=== PATIENT | female | born 1945 | race Caucasian/White ===

== ENCOUNTER 2017-02-18 22:15 | Emergency (ER) | payer MEDICARE ==
[~2017-02-18] VITALS: Ht 149.9 cm; Wt 80.7 kg
[~2017-02-18 22:15] MED LIST: BIOTIN1 MG PO; BUPROPION HCL100 M1 PO; BUSPIRONE HCL10 MG PO; BUSPIRONE HCL15 MG PO; CALCIUM 500 +1 EAC3 PO; CELEXA20 MG PO; CLONAZEPAM1 MG PO; DULOXETINE HCL30 MG PO; FIORICET 50-321 EACH PO; GABAPENTIN100 MG PO; GABAPENTIN300 MG PO; HYDROCODON-ACE1 EA10 PO; IMITREX50 MG PO; L-METHYLFOLATE15 M1 PO; LEVOXYL50 MCG PO; LISINOPRIL10 MG PO; LOSARTAN POTASS50 MG PO; MAGNESIUM250 M1 PO; NASONEX17 GM NAS; NEXIUM40 MG PO; NORCO 5-325 TA1 EACH PO; OCUFLOX5 ML OPTH; PERCOCET 5-3251 EACH PO; PROVENTIL HFA6.7 GM INH; SOMA350 MG PO; VITAMIN A8000 UNIT PO; VITAMIN B-125000 MCG SL; VITAMIN D35000 UNI1 PO; [UNRECOGNIZED DRUG - OTHER] INH
[2017-02-18] MEDS ORDERED: NORCO 5-325 TA1 EACH PO (23:21)
== END 2017-02-19 00:03 | disposition home or self-care (01) ==
LOC: ED 22:15
DX: S83.91XA Sprain of unspecified site of right knee, initial encounter (principal); S20.02XA Contusion of left breast, initial encounter; J45.909 Unspecified asthma, uncomplicated; E03.9 Hypothyroidism, unspecified; F32.9 Major depressive disorder, single episode, unspecified; K21.9 Gastro-esophageal reflux disease without esophagitis; Z87.891 Personal history of nicotine dependence; Z90.710 Acquired absence of both cervix and uterus; Z89.112 Acquired absence of left hand; Z88.8 Allergy status to other drugs, medicaments and biological substances; Z88.0 Allergy status to penicillin; Z88.1 Allergy status to other antibiotic agents; Z79.899 Other long term (current) drug therapy; W18.30XA Fall on same level, unspecified, initial encounter
CPT/HCPCS: 73560; 99283

== ENCOUNTER 2018-03-02 02:40 | Emergency (ER) | payer MEDICARE ==
[~2018-03-02] VITALS: Ht 152.4 cm; Wt 80.7 kg
--- OUTSIDE RECORDS SUMMARY | ~2018-03-02 | XMS | Clinical Summary ---
Demographics + + + | Address | [address] | | | [place] [address] | + + + | Home Phone | | + + + | Preferred Language | Unknown | + + + | Marital Status | | + + + | Quaker Affiliation | 1073 | + + + | Race | Unknown | + + + | Ethnic Group | Unknown | + + + Author + + + | Author | [facility] | | | and [place] | + + + | Organization | [facility] | | | and [place] | + + + | Address | Unknown | + + + | Phone | Unavailable | + + + Support + + +---------+ + | Name | Relationship | Address | Phone | + + +---------+ + | ERNIE RIVERA | ECON | Unknown | | + + +---------+ + Care Team Providers + +------+ + | Care Construction Executive Name | Role | Phone | + +------+ + | Greg De Leon DO | PP | Unavailable | + +------+ + Allergies + + + + + + | Active Allergy | Reactions | Severity | Noted | Comments | | | | | Date | | + + + + + + | Penicillins | Hives, Rash | Low | 01/17/20 | | | | | | 15 | | + + + + + + Current Medications + + +--------+---------+------+------+-------+ | Prescription | Sig. | Disp. | Refills | Star | End | Statu | | | | | | t | Date | s | | | | | | Date | | | + + +--------+---------+------+------+-------+ | carisoprodol | Take 350 mg by mouth | | | | | Activ | | (SOMA) 350 mg tablet | 3 times daily as | | | | | e | | | needed for Muscle | | | | | | | | spasms. | | | | | | + + +--------+---------+------+------+-------+ | clonazePAM | Take 1 mg by mouth | | | | | Activ | | (KLONOPIN) 1 mg | Twice daily as | | | | | e | | tablet | needed for Anxiety. | | | | | | + + +--------+---------+------+------+-------+ | gabapentin | Take 300 mg by mouth | | | | | Activ | | (NEURONTIN) 100 mg | 3 times daily. | | | | | e | | capsule | | | | | | | + + +--------+---------+------+------+-------+ | | Take by mouth 2 | | | | | Activ | | butalbital-acetamino | times daily. | | | | | e | | phen-caffeine | | | | | | | | (FIORICET) per | | | | | | | | tablet | | | | | | | + + +--------+---------+------+------+-------+ | lisinopril | Take 10 mg by mouth | | | | | Activ | | (PRINIVIL, ZESTRIL) | Daily. | | | | | e | | 10 mg tablet | | | | | | | + + +--------+---------+------+------+-------+ | levothyroxine | Take 50 mcg by mouth | | | | | Activ | | (SYNTHROID, | every morning | | | | | e | | LEVOTHROID) 50 mcg | (before breakfast). | | | | | | | tablet | | | | | | | + + +--------+---------+------+------+-------+ | Cyanocobalamin | Take 5,000 mg by | | | | | Activ | | (B-12 PO) | mouth Daily. | | | | | e | + + +--------+---------+------+------+-------+ | MAGNESIUM | Take by mouth | | | | | Activ | | ASPARTATE PO | Daily. | | | | | e | + + +--------+---------+------+------+-------+ | SELENIUM PO | Take by mouth | | | | | Activ | | | Daily. | | | | | e | + + +--------+---------+------+------+-------+ | Esomeprazole | Take 40 mg by mouth | | | | | Activ | | Magnesium (NEXIUM | Daily. | | | | | e | | PO) | | | | | | | + + +--------+---------+------+------+-------+ | busPIRone (BUSPAR) | Take 15 mg by mouth | | | | | Activ | | 10 MG tablet | 4 times daily. | | | | | e | + + +--------+---------+------+------+-------+ | Mometasone Furoate | 1 spray by Nasal | | | | | Activ | | (NASONEX NA) | route as needed | | | | | e | | | (uses about 2 times | | | | | | | | a month). | | | | | | + + +--------+---------+------+------+-------+ | Cholecalciferol | Take 5,000 Units by | | | | | Activ | | (VITAMIN D-3) 2000 | mouth Daily. | | | | | e | | units CAPS | | | | | | | + + +--------+---------+------+------+-------+ | albuterol 90 | Inhale 2 puffs into | 17 g | 12 | 10/0 | | Activ | | mcg/puff inhaler | the lungs every 4 | | | 1/20 | | e | | | hours as needed for | | | 15 | | | | | Wheezing or | | | | | | | | Shortness of Breath. | | | | | | + + +--------+---------+------+------+-------+ | losartan (COZAAR) | Take 50 mg by mouth | | | | | Activ | | 50 mg tablet | Daily. | | | | | e | + + +--------+---------+------+------+-------+ | buPROPion | Take 100 mg by mouth | | | | | Activ | | (WELLBUTRIN) 100 mg | 2 times daily. | | | | | e | | tablet | | | | | | | + + +--------+---------+------+------+-------+ | DULoxetine | Take 30 mg by mouth | | | | | Activ | | (CYMBALTA) [address] | Daily. | | | | | e | | capsule | | | | | | | + + +--------+---------+------+------+-------+ | vitamin A (PX | Take 8,000 Units by | | | | | Activ | | VITAMIN A) 8000 | mouth Daily. | | | | | e | | units capsule | | | | | | | + + +--------+---------+------+------+-------+ | fluticasone | Inhale 1 puff into | | | | | Activ | | (FLOVENT HFA) 220 | the lungs 2 times | | | | | e | | mcg/puff inhaler | daily. | | | | | | + + +--------+---------+------+------+-------+ | l-methylfolate 15 | Take 15 mg by mouth | | | | | Activ | | mg tablet | Daily. | | | | | e | + + +--------+---------+------+------+-------+ | | Take 1 tablet by | | | | | Activ | | aspirin-acetaminophe | mouth every 6 hours | | | | | e | | n-caffeine (EXCEDRIN | as needed for Pain. | | | | | | | MIGRAINE) | | | | | | | | 250-250-65 MG per | | | | | | | | tablet | | | | | | | + + +--------+---------+------+------+-------+ | Biotin 1000 MCG | Take 1,000 mcg by | | | | | Activ | | TABS | mouth Daily. | | | | | e | + + +--------+---------+------+------+-------+ | calcium-vitamin D | Take 1 tablet by | | | | | Activ | | (OSCAL 500/200 D-3) | mouth Daily. | | | | | e | | 500 mg-200 units per | | | | | | | | tablet | | | | | | | + + +--------+---------+------+------+-------+ Active Problems + + + | Problem | Noted Date | + + + | Asthma | | + + + | Seasonal allergies | | + + + | Hypertension | | + + + | Hypothyroidism | | + + + | Elevated fasting blood sugar | | + + + | Depression | | + + + + + | Overview: worse in the winter | + + + +---+ | Obesity | | + +---+ | GERD (gastroesophageal reflux disease) | | + +---+ | Osteoporosis | | + +---+ | Lumbar spinal stenosis | | + +---+ Immunizations + + + + | Name | Dates Previously Given | Next Due | + + + + | INFLUENZA, | 05/01/2016, 04/18/2014 | | | UNSPECIFIED | | | | FORMULATION | | | + + + + | PNEUMOCOCCAL | 04/06/2015 | | | CONJUGATE 13-VALENT | | | | (PCV13) | | | + + + + | TDAP, (ADOL/ADULT) | 05/01/2016 | | + + + + Family History + + +------+ + | Medical History | Relation | Name | Comments | + + +------+ + | Diabetes | Brother | | | + + +------+ + | Cancer | Brother | | leukemia | + + +------+ + | Asthma | Daughter | | | + + +------+ + | Heart attack | Father | | | + + +------+ + | Hepatitis C | Father | | | + + +------+ + | Prostate cancer | Father | | | + + +------+ + | Diabetes | Mother | | | + + +------+ + | Hepatitis C | Mother | | | + + +------+ + | Kidney disease | Mother | | | + + +------+ + | Asthma | Sister | | | + + +------+ + | Diabetes | Sister | | | + + +------+ + | Lung cancer | Sister | | | + + +------+ + | Alcohol abuse | Son | | | + + +------+ + | Tobacco Use | Son | | | + + +------+ + + +------+ + + | Relation | Name | Status | Comments | + +------+ + + | Brother | | Alive | | + +------+ + + | Brother | | | | + +------+ + + | Daughter | | Alive | | + +------+ + + | Father | | | prostate cancer | + +------+ + + | Mother | | | renal failure | + +------+ + + | Sister | | | | + +------+ + + | Sister | | Alive | | + +------+ + + | Son | | Alive | | + +------+ + + Social History + + + +--------+ + | Tobacco Use | Types | Packs/Day | Years | Date | | | | | Used | | + + + +--------+ + | Former Smoker | Cigarettes | 0.1 | 6 | Quit: 02/02/1970 | + + + +--------+ + + +---+---+---+ | Smokeless Tobacco: | | | | | Never Used | | | | + +---+---+---+ + + +---------+ + | Alcohol Use | Drinks/We | oz/Week | Comments | | | ek | | | + + +---------+ + | No | 0 | 0.0 | | | | Standard | | | | | drinks or | | | | | | | | | | equivalen | | | | | t | | | + + +---------+ + + + + | Sex Assigned at | Date Recorded | | | | + + + | Not on file | | + + + Last Filed Vital Signs + + + + | Vital Sign | Reading | Time Taken | + + + + | Blood Pressure | 136/70 | 11/27/20161448 PDT | + + + + | Pulse | 82 | 11/27/20161448 PDT | + + + + | Temperature | 36.6 C (97.9 F) | 02/02/2015 0902 PDT | + + + + | Respiratory Rate | 16 | 11/27/20161448 PDT | + + + + | Oxygen Saturation | 96% | 04/06/20151519 PDT | + + + + | Inhaled Oxygen | - | - | | Concentration | | | + + + + | Weight | 82.6 kg (182 lb) | 11/27/20161448 PDT | + + + + | Height | 149.9 cm (4' 11") | 11/27/20161448 PDT | + + + + | Body Mass Index | 36.76 | 11/27/20161448 PDT | + + + + Plan of Treatment + + + + + | Health Maintenance | Due Date | Last Done | Comments | + + + + + | BREAST CANCER | | | | | SCREENING (MAMM Q2 | 5 | | | | YEARS 50-74) | | | | + + + + + | Vaccine: Zoster (1 | | | | | of 2) | 5 | | | + + + + + | Vaccine: | | 04/06/2015 | | | Pneumococcal 65+ | 6 | | | | Low/Medium Risk (2 | | | | | of 2 - PPSV23) | | | | + + + + + | Vaccine: Influenza | | 05/01/2016, 04/18/2014 | | | (#1) | 8 | | | + + + + + | Vaccine: | | 05/01/2016 | | | Dtap/Tdap/Td (2 - | 6 | | | | Td) | | | | + + + + + | Hepatitis C | Completed | 08/21/2016 | | | Screening | | | | + + + + + Results Not on filefrom Last 3 Months Insurance + +--------+ +--------+-------+---------+ | Payer | Benefi | Subscriber | Type | Phone | Address | | | t Plan | ID | | | | | | / | | | | | | | Group | | | | | + +--------+ +--------+-------+---------+ | [employer] | MODA | [id number] | Medica | | | | | HEALTH | | re | | | | | MDCR | | | | | + +--------+ +--------+-------+---------+ + +--------+ +--------+ + + | Guarantor Name | Accoun | Relation to | Date | Phone | Billing Address | | | t Type | Patient | of | | | | | | | | | | + +--------+ +--------+ + + | YANIRA RIVERA | Person | Self | [birth year] | Home: | [address] | | | al/Fam | | 1945 | [phone] | [place] | | | [place] | | | [phone] | [phone] | + +--------+ +--------+ + +
--- OUTSIDE RECORDS SUMMARY | ~2018-03-02 | XMS | Clinical Summary ---
Demographics + + + | Address | [address] | | | [place] [address] | + + + | Home Phone | | + + + | Preferred Language | Unknown | + + + | Marital Status | | + + + | Jew Affiliation | Unknown | + + + | Race | White | + + + | Ethnic Group | Not or | + + + Author + + + | Author | [facility] | + + + | Organization | [facility] | + + + | Address | Unknown | + + + | Phone | Unavailable | + + + Care Team Providers + +------+ + | Care Grain Merchandising Manager Name | Role | Phone | + +------+ + PP | Unavailable | + +------+ + Source Comments [facility] and [facility] Allergies Not on File Current Medications Not on file Active Problems Not on file Social History + +-------+ +--------+------+ | Tobacco Use | Types | Packs/Day | Years | Date | | | | | Used | | + +-------+ +--------+------+ | Never Assessed | | | | | + +-------+ +--------+------+ + + + | Sex Assigned at | Date Recorded | | | | + + + | Not on file | | + + + Plan of Treatment + + + + + | Health Maintenance | Due Date | Last Done | Comments | + + + + + | INFLUENZA VACCINE | | | | | (FLU SHOT) | 8 | | | + + + + + Results Not on filefrom Last 3 Months Insurance + +--------+ +------+ + + | Payer | Benefi | Subscriber | Type | Phone | Address | | | t Plan | ID | | | | | | / | | | | | | | Group | | | | | + +--------+ +------+ + + | [employer] | MODA | xxxxxxxxx | PPO | [phone] | [address] | | | MEDICA | | | [address] | [place] [address] | | | RE PPO | | | | | + +--------+ +------+ + + + +--------+ +--------+ + + | Guarantor Name | Accoun | Relation to | Date | Phone | Billing Address | | | t Type | Patient | of | | | | | | | | | | + +--------+ +--------+ + + | YANIRA RIVERA | Person | Self | [birth year] | Home: | [address] | | | [place] | | 1945 | [phone] | [address] [place] | | | [place] | | | [phone] | [phone] | + +--------+ +--------+ + +"
--- OUTSIDE RECORDS SUMMARY | ~2018-03-02 | XMS | Clinical Summary ---
Demographics + + + | Address | [address] | | | [place] [address] | + + + | Home Phone | | + + + | Preferred Language | Unknown | + + + | Marital Status | | + + + | Protestant Affiliation | 1073 | + + + | Race | Unknown | + + + | Ethnic Group | Unknown | + + + Author + + + | Author | [facility] | | | and [place] | + + + | Organization | [facility] | | | and [...] Team Providers + +------+ + | Care Slitter Helper Name | Role | Phone | + [...] | [employer] | MODA | [id number] | Medica | | | | | [...] | Self | [birth year] | Home: | [address] | | | al/Fam | | 1945 | [phone] | [place] | | | [place] | | | [phone] | [phone] | + +--------+ +--------+ + +
--- OUTSIDE RECORDS SUMMARY | ~2018-03-02 | XMS | Clinical Summary ---
Demographics + + + | Address | [address] | | | [place] [address] | + + + | Home Phone | | + + + | Preferred Language | Unknown | + + + | Marital Status | | + + + | Restoration Affiliation | Unknown | + + + | Race | White | + + + | Ethnic Group | Not or | + + + Author + + + | Author | [facility] | + + + | Organization | [facility] | + + + | Address | Unknown | + + + | Phone | Unavailable | + + + Care Team Providers + +------+ + | Care Emu Farm Worker Name | Role | Phone | + +------+ + PP | Unavailable | + +------+ + Source Comments [facility] and [facility] & [facility] Allergies Not on File Current Medications Not [...] | MEDICA | | | [address] | [place] [address] | | | RE PPO | | [...] | Self | [birth year] | Home: | [address] | | | jesus/[place]as | | 1945 | [phone] | [address] [place] | | | [place] | | | [phone] | [phone] | + +--------+ +--------+ + +"
--- OUTSIDE RECORDS SUMMARY | ~2018-03-02 | XMS | Clinical Summary ---
Demographics + + + | Address | [address] | | | [place] [address] | + + + | Home Phone | | + + + | Preferred Language | Unknown | + + + | Marital Status | Unknown | + + + | Hoahaoism Affiliation | Unknown | + + + | Race | Unknown | + + + | Ethnic Group | Unknown | + + + Author + + + | Author | [facility] | + + + | Organization | [facility] | + + + | Address | Unknown | + + + | Phone | Unavailable | + + + Support + + + + + | Name | Relationship | Address | Phone | + + + + + | Dom Rivera | ECON | [address] | | | Sr | | [place], [place] | | | | | [address] | | + + + + + | Detailed,Message | ECON | [address] | | | | | [place], [place] | | | | | [address] | | + + + + + Care Team Providers + +------+ + | Care Concrete Plant Laborer Name | Role | Phone | + +------+ + | Barney De Leon DO | PP | | + +------+ + Allergies + + + + + + | Active Allergy | Reactions | Severity | Noted | Comments | | | | | Date | | + + + + + + | Cephalexin | Headache | Low | 04/11/20 | | | | | | 17 | | + + + + + + | Penicillins | Hives, Rash | High | 06/21/20 | | | | | | 16 | | + + + + + + Current Medications + + +-------+---------+------+------+-------+ | Prescription | Sig. | Disp. | Refills | Star | End | Statu | | | | | | t | Date | s | | | | | | Date | | | + + +-------+---------+------+------+-------+ | Biotin 1 MG CAPS | Take 1,000 mcg by | | | | | Activ | | | mouth. | | | | | e | + + +-------+---------+------+------+-------+ | buPROPion | Take 100 mg by mouth | | | | | Activ | | (WELLBUTRIN) 100 MG | 2 (two) times | | | | | e | | tablet | daily. | | | | | | + + +-------+---------+------+------+-------+ | busPIRone (BUSPAR) | Take 15 mg by mouth | | | | | Activ | | 15 MG tablet | 4 (four) times | | | | | e | | | daily. | | | | | | + + +-------+---------+------+------+-------+ | clonazePAM | Take 1 mg by mouth | | | | | Activ | | (KLONOPIN) 1 MG | nightly as needed | | | | | e | | tablet | for Anxiety. | | | | | | + + +-------+---------+------+------+-------+ | DULoxetine | Take 30 mg by mouth | | | | | Activ | | (CYMBALTA) 30 MG | daily. | | | | | e | | capsule | | | | | | | + + +-------+---------+------+------+-------+ | | Take 1 tablet by | | | | | Activ | | aspirin-acetaminophe | mouth every 6 (six) | | | | | e | | n-caffeine (EXCEDRIN | hours as needed for | | | | | | | MIGRAINE) | Pain. | | | | | | | 250-250-65 MG per | | | | | | | | tablet | | | | | | | + + +-------+---------+------+------+-------+ | gabapentin | Take 300 mg by mouth | | | | | Activ | | (NEURONTIN) 300 MG | 3 (three) times | | | | | e | | capsule | daily. 1 Cap AM, 1 | | | | | | | | Cap Noon, 3 Pap PM | | | | | | + + +-------+---------+------+------+-------+ | levothyroxine | Take 50 mcg by mouth | | | | | Activ | | (SYNTHROID) 50 MCG | every morning | | | | | e | | tablet | before breakfast. | | | | | | + + +-------+---------+------+------+-------+ | L-methylfolate | Take 15 mg by mouth | | | | | Activ | | (DEPLIN) 15 MG | daily with | | | | | e | | tablet | breakfast. | | | | | | + + +-------+---------+------+------+-------+ | LOSARTAN POTASSIUM | Take 50 mg by mouth | | | | | Activ | | PO | daily. | | | | | e | + + +-------+---------+------+------+-------+ | Magnesium 250 MG | Take 250 mg by mouth | | | | | Activ | | TABS tablet | daily. | | | | | e | + + +-------+---------+------+------+-------+ | esomeprazole | Take 40 mg by mouth | | | | | Activ | | (NEXIUM) 40 MG | every morning before | | | | | e | | capsule | breakfast. | | | | | | + + +-------+---------+------+------+-------+ | vitamin A (PX | Take 8,000 Units by | | | | | Activ | | VITAMIN A) 8000 UNIT | mouth daily. | | | | | e | | capsule | | | | | | | + + +-------+---------+------+------+-------+ | carisoprodol | Take 350 mg by mouth | | | | | Activ | | (SOMA) 350 MG tablet | 3 (three) times | | | | | e | | | daily as needed for | | | | | | | | Muscle spasms. | | | | | | + + +-------+---------+------+------+-------+ | albuterol | Inhale 2 puffs into | | | | | Activ | | (VENTOLIN HFA) 108 | the lungs every 4 | | | | | e | | (90 BASE) MCG/ACT | (four) hours as | | | | | | | inhaler | needed for Wheezing. | | | | | | + + +-------+---------+------+------+-------+ | Cyanocobalamin | Take 5,000 mcg by | | | | | Activ | | (VITAMIN B-12) 5000 | mouth daily. | | | | | e | | MCG LOZG | | | | | | | + + +-------+---------+------+------+-------+ | Cholecalciferol | Take 5,000 Units by | | | | | Activ | | 5000 UNITS capsule | mouth daily. | | | | | e | + + +-------+---------+------+------+-------+ | | Take 1 tablet by | | | | | Activ | | butalbital-acetamino | mouth 2 (two) times | | | | | e | | phen-caffeine | daily. | | | | | | | (ESGIC) 50-325-40 MG | | | | | | | | per tablet | | | | | | | + + +-------+---------+------+------+-------+ | buPROPion | 300 mg daily. | | | 03/0 | | Activ | | (WELLBUTRIN SR) 100 | | | | 9/20 | | e | | MG 12 hr tablet | | | | 17 | | | + + +-------+---------+------+------+-------+ | Chromium 1000 MCG | Take 1,000 mcg by | | | | | Activ | | TABS | mouth daily. | | | | | e | + + +-------+---------+------+------+-------+ | Calcium | Take by mouth | | | | | Activ | | Carb-Cholecalciferol | daily. | | | | | e | | (CALCIUM 500+D3 PO) | | | | | | | + + +-------+---------+------+------+-------+ Active Problems + + + | Problem | Noted Date | + + + | CKD (chronic kidney disease), stage III | 07/22/2016 | + + + | Non morbid obesity due to excess calories | 07/22/2016 | + + + Family History + + +------+ + | Medical History | Relation | Name | Comments | + + +------+ + | Cancer | Father | | Prostate | + + +------+ + | Renal Disease | Mother | | | + + +------+ + + +------+ + + | Relation | Name | Status | Comments | + +------+ + + | Father | | | | | | | (Age | | | | | 61) | | + +------+ + + | Mother | | | | | | | (Age | | | | | 71) | | + +------+ + + Social History + +-------+ +--------+------+ | Tobacco Use | Types | Packs/Day | Years | Date | | | | | Used | | + +-------+ +--------+------+ | Never Smoker | | | | | + +-------+ +--------+------+ + + | Tobacco Cessation: Counseling Given: No | + + + + +---------+ + | Alcohol Use [...] + + + | Blood Pressure | 121/75 | 11/12/2017 1:01 PM PDT | + + + + | Pulse | 90 | 11/12/2017 1:01 PM PDT | + + + + | Temperature | 36.3 C (97.3 F) | 11/12/2017 1:01 PM PDT | + + + + | Respiratory Rate | - | - | + + + + | Oxygen Saturation | 96% | 11/12/2017 1:01 PM PDT | + + + + | Inhaled Oxygen | - | - | | Concentration | | | + + + + | Weight | 84.1 kg (185 lb 8 | 11/12/2017 1:01 PM PDT | | | oz) | | + + + + | Height | 149.9 cm (4' 11") | 11/12/2017 1:01 PM PDT | + + + + | Body Mass Index | 37.47 | 11/12/2017 1:01 PM PDT | + + + + Plan of Treatment +--------+---------+ + + + | Date | Type | Specialty | Care Team | Description | +--------+---------+ + + + | 05/22/ | Office | | [facility]on[facility], | | | 2017 | Visit | | [facility] | | | | | | [facility] | | | | | | [place] [address] | | | | | | [phone] | | | | | | | | +--------+---------+ + + + + + + + + | Health Maintenance | Due Date | Last Done | Comments | + + + + + | Breast Cancer | | | | | Screening | 5 | | | | (Mammogram) | | | | + + + + + | Colon Cancer | | | | | Screening | 5 | | | | (Colonoscopy) | | | | + + + + + | Vaccine: Zoster (1 | | | | | of 2) | 5 | | | + + + + + | DEXA SCAN SCREENING | | | | | | 0 | | | + + + + + | Vaccine: | | 04/06/2015 | | | Pneumococcal 65+ | 6 | | | | Low/Medium Risk (2 | | | | | of 2 - PPSV23) | | | | + + + + + | Vaccine: Influenza | | | | | (#1) | 8 | [...] | | | + +--------+ +--------+-------+---------+ | [place] - MODA | [place] - | [id number] | Medica | | | | | MODA | | re | | | | | | | | | | | | | | | | | | | | | | | | | | | | | | | | | | | | | | | | MA - | | | | | | | MODA | | | | | + +--------+ [...] | Self | [birth year] | Home: | [address] | | | [place] | | 1945 | [phone] | [address] [place] | | | [place] | | | [phone] | [phone] | + +--------+ +--------+ + +
--- OUTSIDE RECORDS SUMMARY | ~2018-03-02 | XMS | Clinical Summary ---
Demographics + + + | Address | [address] | | | [place] [address] | + + + | Home Phone | | + + + | Preferred Language | Unknown | + + + | Marital Status | Unknown | + + + | Caodaism Affiliation | Unknown | + + + | Race | Unknown | + + + | Ethnic Group | Unknown | + + + Author + + + | Author | [facility] | + + + | Organization | [facility] | + + + | Address | Unknown | + + + | Phone | Unavailable | + + + Support + + + + + | Name | Relationship | Address | Phone | + + + + + | Dom Rivera | ECON | [address] | | | Sr | | [place], [place] | | | | | [address] | | + + + + + | Detailed,Message | ECON | [address] | | | | | [place], [place] | | | | | [address] | | + + + + + Care Team Providers + +------+ + | Care Reading Tutor Name | Role | Phone | + [...] VINCENT | | | | | | [place] [address] | | | | | | [phone] | | | | | | | [...] MA - MODA | [place] - | [id number] | Medica | | | | | [...] | Self | [birth year] Home: | [address] | | | [address]as | | [phone] | [phone] [address] | | | [place] | | | [phone] | + +--------+ +--------+ + +
[2018-03-02] MEDS ORDERED: RANITIDINE HCL150 M1 PO (03:03)
[2018-03-02] MEDS ORDERED: NORCO 5-325 TA1 EACH PO (04:27)
== END 2018-03-02 04:42 | disposition home or self-care (01) ==
LOC: ED 02:40
DX: S00.83XA Contusion of other part of head, initial encounter (principal); S50.811A Abrasion of right forearm, initial encounter; W10.9XXA Fall (on) (from) unspecified stairs and steps, initial encounter; J45.909 Unspecified asthma, uncomplicated; K21.9 Gastro-esophageal reflux disease without esophagitis; E03.9 Hypothyroidism, unspecified; Z87.891 Personal history of nicotine dependence; Z91.048 Other nonmedicinal substance allergy status; Z88.0 Allergy status to penicillin; Z88.1 Allergy status to other antibiotic agents; Z79.899 Other long term (current) drug therapy
CPT/HCPCS: 70450; 73090; 73130; 99284

== ENCOUNTER 2019-12-24 07:00 | Day surgery (SDC) | payer MEDICARE ==
[~2019-12-24] VITALS: Ht 302.3 cm; Wt 86.2 kg
[~2019-12-24 07:00] MED LIST changes: +OMEPRAZOLE20 MG PO; +RANITIDINE HCL150 M1 PO
[2019-12-24] MEDS ORDERED: HYDROCODON-ACE1 EA11 PO (08:30)
--- NOTE | 2019-12-24 08:57 | NUR ---
12/24/19 0857 Maude Lopez 0831- PT TO PACU IN SUPINE POSITION. EYES CLOSED. BREATHING EASY AND UNLABORED. SPO2 >95% ON 8 L O2 VIA MASK. DRESSING CDI. 0838- PT RESPONDING TO VOICE. DENIES PAIN OR NAUSEA. BREATHING EASY AND UNLABORED. SPO2 >90% ON RA. DRESSING CDI AND CMS INTACT. 0846- PT REPORTS FEELING GASSY. ENCOURAGED TO PASS GAS AND TAKE DEEP BREATHS. 0855- R EXTREMITY ELEVATED AND ICE APPLIED. PATIENT DENIES PAIN AND NAUSEA. MD AT BEDSIDE TALKING WITH PATIENT.
--- NOTE | 2019-12-24 09:14 | OR ---
[facility] [address], [place] [address] Signed DATE OF OPERATION: 12/24/2019 SURGEON: Nelson Pride MD PREOPERATIVE DIAGNOSIS: Medial meniscus tear, right knee. POSTOPERATIVE DIAGNOSES: 1. Medial meniscus tear, right knee. 2. Lateral meniscus tear, right knee. PROCEDURE PERFORMED: Right knee arthroscopy with partial medial and lateral meniscectomies. COLLEGE PHYSICS INSTRUCTOR: None. ANESTHESIA: General. BLOOD LOSS: Minimal. TOURNIQUET TIME: Zero. BRIEF HISTORY: Yanira is a 74-year-old female with painful locking in her knee. MRI was consistent with the medial meniscus tear. Risks and benefits of operative intervention were discussed with her and she elected to proceed. DESCRIPTION OF PROCEDURE: Once consent was obtained, she was taken to the operating room. After adequate anesthesia, she was placed on operating room table. The left leg was flexed, abducted, and externally rotated on a well-padded leg anderson and no tourniquet was placed. The portal sites were pre-injected using 0.25% Marcaine with epinephrine under alcohol prep. The leg was then prepped and draped in a standard sterile fashion. Standard inferolateral and superolateral portals were made and the scope was introduced. ARTHROSCOPIC FINDINGS: Electronically Signed By: NELSON PRIDE MD 12/24/19 0914 PATIENT NAME: YANIRA RIVERA OPERATIVE REPORT DATE OF : 45 REPORT #: [id number] PHYSICIAN: NELSON PRIDE MD PCP: DARION VITALE PAC REPORT IS CONFIDENTIAL AND NOT TO BE RELEASED WITHOUT AUTHORIZATION [facility] [address] [place] [facility] [place] [address] Signed The patella showed grade 2 chondromalacia as did the trochlea. There was moderate synovitis throughout the knee. The medial and lateral gutters were cleared with mild osteophytes. ACL and PCL were intact. Medial compartment showed a complex tear stemming from the posterior horn all the way across the back of the knee. There was grade 2 chondromalacia on the femur. Lateral compartment showed no significant chondromalacia. There was a small radial tear in the posterior lateral corner. DESCRIPTION OF PROCEDURE: Standard inferomedial portal was made after localization using a spinal needle. The straight and curved biters were then used to trim both meniscus tears back to a stable rim. Minimal lateral meniscectomy was performed. The margins were then smoothed using the shaver and all debris was evacuated. The scope was then withdrawn, portals were closed with 3-0 nylon and the knee was injected with 60 mg Toradol at the end of the case. The wounds were dressed with Adaptic, ABD, and Ronan wrap. She tolerated the procedure well. All sponge, needle, and instrument counts were correct. Nelson Pride MD BA/ANUPAML /[id number] Copies: ~ Electronically Signed By: NELSON PRIDE MD 12/24/19 0914 PATIENT NAME: YANIRA RIVERA OPERATIVE REPORT DATE OF : 45 REPORT #: [id number] PHYSICIAN: NELSON PRIDE MD PCP: DARION VITALE PAC REPORT IS CONFIDENTIAL AND NOT TO BE RELEASED WITHOUT AUTHORIZATION
--- NOTE | 2019-12-24 09:23 | NUR ---
PT ARRIVES TO DS RM 10 FROM PACU DROWSY, EASY TO AROUSE WITH VERBAL STIMULI. PT SPOUSE IN RM AT BEDSIDE. PT DENIES ANY PAIN OR NAUSEA. SCD ON LEFT LEG, PUMPING. PT HAS 2L O2 VIA NC IN PLACE, SATS GREATER THAN 94%. ICED WATER AT BEDSIDE, CALL LIGHT WITHIN REACH. DC CRITERIA EXPLAINED.
--- NOTE | 2019-12-24 10:12 | NUR ---
PT RESTING IN BED, DROWSY. PT EASILY WAKES WITH ENTRANCE TO ROOM, DENIES NAUSEA AND RATES PAIN IN RIGHT KNEE 4 AND TOLERABLE. PT PROVIDED JELLO AND CRACKERS PER REQUEST. O2 REMOVED AT THIS TIME, SPOUSE AT BEDSIDE. PT ENC TO USE CALL LIGHT WITH URGE TO VOID.
--- NOTE | 2019-12-24 11:00 | NUR ---
PT USES CALL LIGHT TO NOTIFY RN OF URGE TO VOID. PT UP TO BATHROOM WITH RN ASSIST, DENIES NAUSEA OR DIZZINESS WITH POSITION CHANGE, STEADY GAIT. PT ABLE TO VOID 450 MLS CLEAR, YELLOW URINE WITH NO PROBLEM. PT DRESSES SELF FOR DC HOME. DC INSTRUCTIONS PRESENTED TO PT AND SPOUSE AT BEDSIDE, ALL QUESTIONS ADDRESSED. PT AWARE THAT PAIN PRESCRIPTION WAS ESCRIPTED BY DR. ADAMSON TO PHARMACY ON CHART. PT DC'S FROM DS RM 10 VIA WC TO PERSONAL VEHICLE AT HOSPITAL MAIN ENTRANCE HOME WITH SPOUSE.
== END 2019-12-24 11:20 | disposition home or self-care (01) ==
LOC: DS 07:00
PROVIDERS: Specialist
PROC: 0SBC4ZZ Excision of Right Knee Joint, Percutaneous Endoscopic Approach (ICD-10-PCS; 2019-12-24)
PROC: 0SBC4ZZ Excision of Right Knee Joint, Percutaneous Endoscopic Approach (ICD-10-PCS; principal; 2019-12-24 08:15)
DX: S83.231A Complex tear of medial meniscus, current injury, right knee, initial encounter (principal); S83.281A Other tear of lateral meniscus, current injury, right knee, initial encounter; N18.9 Chronic kidney disease, unspecified; J45.909 Unspecified asthma, uncomplicated; F41.9 Anxiety disorder, unspecified; Z79.899 Other long term (current) drug therapy; Z88.2 Allergy status to sulfonamides; Z88.0 Allergy status to penicillin; Z91.048 Other nonmedicinal substance allergy status; Z88.8 Allergy status to other drugs, medicaments and biological substances; X58.XXXA Exposure to other specified factors, initial encounter
CPT/HCPCS: 01402; J0330; J1100; J1885; J2250; J2405; J2704; J2765; J3010; J7121

== ENCOUNTER 2020-03-30 09:50 | Day surgery (SDC) | payer MEDICARE ==
[~2020-03-30] VITALS: Ht 152.4 cm; Wt 86.2 kg
[~2020-03-30 09:50] MED LIST changes: +CALCIUM500 MG PO; +HYDROCODON-ACE1 EA11 PO
--- NOTE | 2020-03-30 11:46 | NUR ---
PATIENT IS ASSISTED TO THE BATHROOM AND SHE IS BACK IN BED. SHE AND HER DENY ADDITIONAL NEEDS AT THIS TIME.
--- NOTE | 2020-03-30 13:44 | NUR ---
03/30/20 1344 Ebony Booker 1337 PT ARRIVED TO PACU AND REPORTS "I FEEL GREAT!" PT REORIENTED TO PACU. VSS.
--- NOTE | 2020-04-03 09:09 | OR ---
[facility] [address], [place] [address] Signed DATE OF OPERATION: 03/30/2020 SURGEON: Lorena Zavaleta MD PREOPERATIVE DIAGNOSES: 1. History of polyps of colon. 2. Longstanding gastroesophageal reflux with episodic dysphagia. POSTOPERATIVE DIAGNOSES: 1. Low-grade Schatzki's ring. 2. Antral gastritis. 3. Sigmoid and left-sided diverticulosis, no evidence of recurrent polyp. PROCEDURES: 1. Esophagogastroduodenoscopy with biopsy. 2. Total colonoscopy to cecum. ANESTHESIA: Intravenous sedation, propofol infusion; Shabana Olmos CRNA INDICATIONS: This 75-year-old obese woman is known to me from the past and is now patient of NAVEEN Bejarano. She has numerous medical issues and some psychologic ones as well. She is known to have longstanding reflux disease. She has had some episodes of mild dysphagia. On that basis, upper endoscopy has been recommended. She does take Nexium on a daily basis. The patient has undergone sigmoid resection in the past related to diverticular disease. She is having no blood per rectum, diarrhea, or constipation. She said she has undergone colonoscopy and upper endoscopy [place] [address] Pinto in [place], it showed diverticulosis, a sigmoid polyp, and internal hemorrhoids. Upper endoscopy was concurrently performed, which showed a gastric polyp. She is admitted at this time to undergo surveillance upper endoscopy and colonoscopy on the basis of her symptoms and prior history. She understands the risks of bleeding, infection, and perforation and wished to proceed. FINDINGS: Upper endoscopy showed mild Schatzki's ring and antral gastritis. No sign of polyps or cancer. CLOtest was negative 15 minutes post procedure. On colonoscopy, the prep was excellent. Complete colonoscopy was undertaken to the cecum without question. She had numerous diverticula of sigmoid and left colon. Electronically Signed By: LORENA ZAVALETA MD 04/03/20 0909 PATIENT NAME: YANIRA RIVERA OPERATIVE REPORT DATE OF : 45 REPORT #: [id number] PHYSICIAN: LORENA ZAVALETA MD PCP: DARION VITALE PAC REPORT IS CONFIDENTIAL AND NOT TO BE RELEASED WITHOUT AUTHORIZATION [facility] [address], [place] [address] Signed DESCRIPTION OF PROCEDURE: The patient was brought to the endoscopy suite and placed in lateral decubitus position, given intravenous sedation with propofol infusional technique, a bite block was placed. An Olympus video upper endoscope was passed by hypopharynx. Vocal cords were normal. Scope was advanced to the esophagus throughout its length, it was normal, though in the distal portion there is a low-grade Schatzki's ring. There was no evidence of Archibald's esophagus. The scope was advanced to the stomach, which was insufflated with air. Rugal folds were normal. Antral motility was normal. There was pre-pyloric antral gastritis, but no sign of ulcer. Pylorus was normal. Scope was passed through into the duodenum, which showed some mild inflammation of the bulbar portion. Biopsies were taken the from the second and bulbar portions. The scope was withdrawn. A biopsy was then taken of the antrum. CLOtest biopsies were obtained as well. The more proximal stomach showed normal rugal folds. The scope was withdrawn to the distal esophagus, where biopsies were obtained of the Schatzki ring. Careful withdrawal showed no other abnormality, specifically no tissue of findings to suggest the eosinophilic esophagitis. Plans were then made for colonoscopy. Digital rectal examination was normal. An Olympus video colonoscope was passed in the rectum and manipulated throughout the colon ultimately intubating the cecum. The ileocecal valve and appendiceal orifice were normal. The scope was withdrawn from that point and examination throughout showed no sign of abnormality other than diverticular changes of the left and distal sigmoid colon. The rectum was normal. Retroflexed view showed minimal hemorrhoidal changes. Scope was removed. The patient was taken to the recovery room in good condition. CONCLUDING DIAGNOSES: 1. Mild Schatzki's ring consistent with ongoing reflux. No evidence of Archibald epithelium or neoplasm. 2. Antral gastritis. 3. Diverticular changes. PLAN: 1. Recommend continued use of PPI medication as previously prescribed. We are mindful of the risks of PPI use and we will review them. 2. High-fiber diet. 3. Consideration for colon evaluation again in 5 years or sooner if clinically indicated. Lorena Zavaleta MD Electronically Signed By: LORENA ZAVALETA MD 04/03/20908 PATIENT NAME: YANIRA RIVERA OPERATIVE REPORT DATE OF : 45 REPORT #: [id number] PHYSICIAN: LORENA ZAVALETA MD PCP: DARION VITALE PAC REPORT IS CONFIDENTIAL AND NOT TO BE RELEASED WITHOUT AUTHORIZATION [address] [address] Signed /MIRA /[id number] Copies: ~ Electronically Signed By: LORENA ZAVALETA MD 04/03/20 0909 PATIENT NAME: YANIRA RIVERA OPERATIVE REPORT DATE OF : 45 REPORT #: [id number] PHYSICIAN: LORENA ZAVALETA MD PCP: DARION VITALE PAC REPORT IS CONFIDENTIAL AND NOT TO BE RELEASED WITHOUT AUTHORIZATION
--- NOTE | 2020-04-03 14:00 | PATH ---
[facility] [address], [place] [address] Signed SPECIMEN(S): A DUODENUM SPECIMEN(S): B ANTRUM/PYLORUS SPECIMEN(S): C LOWER ESOPHAGUS SPECIMEN SOURCE: A. DUODENUM B. ANTRUM/PYLORUS C. LOWER ESOPHAGUS CLINICAL HISTORY: Diverticulosis, GERD, history of colon polyps, history of sigmoid colectomy. Post op: Schatzki's ring, antral gastritis, diverticulosis. MICROSCOPIC DESCRIPTION: Histologic sections of all submitted blocks are examined by light microscopy. These findings, together with the gross examination, support the pathologic diagnosis. FINAL PATHOLOGIC DIAGNOSIS: A. Duodenum, biopsy: - Duodenal mucosa with no histopathologic abnormality. - Negative for dysplasia or malignancy. B. Stomach, antrum/pylorus, biopsy: - Oxyntic mucosa with no histopathologic abnormality. - Negative for Helicobacter organisms on HE stain. - Negative for dysplasia or malignancy. C. Esophagus, lower, biopsy: - Squamocolumnar junctional mucosa with chronic inflammation and reactive epithelial changes, consistent with reflux esophagitis. - Negative for intestinal metaplasia, dysplasia or malignancy. NAL:caw:C2NR GROSS DESCRIPTION: Three specimens are received in three containers, labeled "Yanira Rivera." A. The specimen, labeled "Yanira Rivera, #1," and designated on the requisition "duodenum biopsy," is received in formalin and consists of one ross soft tissue fragment that measures 0.5 cm in greatest dimension. The specimen is entirely submitted in cassette (A1). B. The specimen, labeled "Yanira Rivera, #2," and designated on the requisition "antrum/pylorus biopsy," is received in formalin and consists of one ross soft tissue fragment that measures 0.3 cm in greatest dimension. The specimen is entirely submitted in cassette (B1). PATIENT NAME: YANIRA RIVERA PATHOLOGY DATE OF : 45 REPORT #: [id number] PHYSICIAN: MELY PATHOLOGY PCP: DARION VITALE PAC REPORT IS CONFIDENTIAL AND NOT TO BE RELEASED WITHOUT AUTHORIZATION [facility] [address], [place] [address] Signed C. The specimen, labeled "Yanira Rivera, #3," and designated on the requisition "lower esophagus biopsy," is received in formalin and consists of four white-ross soft tissue fragments that measure 0.2 to 0.7 cm in greatest dimension. The specimen is entirely submitted in cassette (C1). FB (under the direct supervision of a pathologist) The Gross Description was prepared using a voice recognition system. The report was reviewed for accuracy; however, sound-alike word errors, addition and/or deletions may occur. If there is any question about this report, please contact Client Services. PERFORMING LABORATORY: The technical component was performed by [facility], [address] [place] [id number] (Bituminous Distributor Operator: Ally Sanders MD; CLIA# [id number]). Professional interpretation was performed by [facility], [address] [address] (CLIA# [id number]). Diagnostician: Betsy Clay MD Pathologist Electronically Signed 04/03/2020 Copies: ~ PATIENT NAME: YANIRA RIVERA SAEED PATHOLOGY DATE OF : 45 REPORT #: [id number] PHYSICIAN: MELY PATHOLOGY PCP: DARION VITALE PAC REPORT IS CONFIDENTIAL AND NOT TO BE RELEASED WITHOUT AUTHORIZATION
== END 2020-03-30 14:15 | disposition home or self-care (01) ==
LOC: OPS 09:50 → DS 09:50 → OPS 11:00
PROVIDERS: ATTEND Surgery
PROC: 0DB78ZX Excision of Stomach, Pylorus, Via Natural or Artificial Opening Endoscopic, Diagnostic (ICD-10-PCS; 2020-03-30)
PROC: 0DB38ZX Excision of Lower Esophagus, Via Natural or Artificial Opening Endoscopic, Diagnostic (ICD-10-PCS; 2020-03-30)
PROC: 0DJD8ZZ Inspection of Lower Intestinal Tract, Via Natural or Artificial Opening Endoscopic (ICD-10-PCS; principal; 2020-03-30 11:00)
PROC: 0DB98ZX Excision of Duodenum, Via Natural or Artificial Opening Endoscopic, Diagnostic (ICD-10-PCS; 2020-03-30 11:00)
DX: Z12.11 Encounter for screening for malignant neoplasm of colon (principal); K64.8 Other hemorrhoids; K57.30 Diverticulosis of large intestine without perforation or abscess without bleeding; K20.9 Esophagitis, unspecified; K22.2 Esophageal obstruction; K21.9 Gastro-esophageal reflux disease without esophagitis; J45.909 Unspecified asthma, uncomplicated; F32.9 Major depressive disorder, single episode, unspecified; E03.9 Hypothyroidism, unspecified; Z86.010 Personal history of colon polyps; Z90.49 Acquired absence of other specified parts of digestive tract; Z98.890 Other specified postprocedural states; Z88.0 Allergy status to penicillin; Z79.899 Other long term (current) drug therapy
CPT/HCPCS: 43239; G0105; J2001; J2704; J7121

== ENCOUNTER 2021-07-09 10:06 | Emergency (ER) | payer MEDICARE ==
[~2021-07-09] VITALS: Ht 165.1 cm; Wt 88.5 kg
[2021-07-09] MEDS ORDERED: ONDANSETRON ODT8 MG PO (11:35)
== END 2021-07-09 12:37 | disposition home or self-care (01) ==
LOC: ED 10:06
DX: R41.0 Disorientation, unspecified (principal); K21.9 Gastro-esophageal reflux disease without esophagitis; E03.9 Hypothyroidism, unspecified; J45.909 Unspecified asthma, uncomplicated; Z87.891 Personal history of nicotine dependence; Z88.0 Allergy status to penicillin; Z88.1 Allergy status to other antibiotic agents; Z91.048 Other nonmedicinal substance allergy status; Z79.899 Other long term (current) drug therapy
CPT/HCPCS: 70450; 80053; 81001; 84484; 85025; 96374; 99285-25; J2405

== ENCOUNTER 2022-04-29 09:23 | Emergency (ER) | payer MEDICARE ==
[~2022-04-29] VITALS: Ht 165.1 cm; Wt 88.5 kg
[~2022-04-29 09:23] MED LIST changes: +ONDANSETRON ODT8 MG PO
--- OUTSIDE RECORDS SUMMARY | 2022-04-29 09:26 | XMS ---
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 - Patient with suicidal and/or homicidal ideations eloped. - Patient eloped with IV in place. Details: PATIENT LWBS Elopement at [facility] 02/07/2022 13:16 - Patient eloped before treatment completed. - Patient with suicidal and/or homicidal ideations eloped. - Patient eloped with IV in place. Details: PATIENT LW CRITERIA MET - [facility] - [facility] - 2 Visits in 30 Days CARE PROVIDERS DARION VITALE Physician 07/12/2021-Current PHONE: Unknown Jose has no Care Guidelines for this patient. E.D. VISIT COUNT (12 MO.) [address] TOTAL 4 NOTE: Visits indicate total known visits. ED/UCC VISIT TRACKING (12 MO.) 04/29/2022 09:24 [facility] TYPE: Emergency COMPLAINT: - BACK PAIN 04/26/2022 13:36 [facility] Joan CARLISLE TYPE: Emergency DIAGNOSES: - Shortness of Breath - Wheezing - Disorientation, unspecified - Vomiting, unspecified - SOB; emesis - Emesis 02/07/2022 13:16 [facility] [place] TYPE: Emergency COMPLAINT: - NOSE PAIN 07/09/2021 10:06 [facility] [place] TYPE: Emergency COMPLAINT: - CHEST PAIN DIAGNOSES: - Other nonmedicinal substance allergy status - Allergy status to other antibiotic agents - Personal history of nicotine dependence - Gastro-esophageal reflux disease without esophagitis - Disorientation, unspecified - Other assisted (current) drug therapy - Allergy status to penicillin - Unspecified asthma, uncomplicated - Hypothyroidism, unspecified INPATIENT VISIT TRACKING (12 MO.) No inpatient visits to display in this time frame [email or web address]
--- NOTE | 2022-04-30 20:35 | EKG ---
[facility] [address] [facility] [place] [address] Signed Normal sinus rhythm ST \T\ T wave abnormality, consider anterior ischemia Abnormal ECG When compared with ECG of 21-DEC-2019 14:53, Questionable change in QRS axis T wave inversion now evident in Anterior leads Confirmed by RICHI ROSEN MD ([id number]) on 04/30/2022 8:35:20 PM Electronically Signed By: RICHI ROSEN MD 04/30/222034 PATIENT NAME: RIVERAYANIRA LEE Electrocardiogram DATE OF : 45 PHYSICIAN: RICHI ROSEN MD REPORT #: [id number] REPORT IS CONFIDENTIAL AND NOT TO BE RELEASED WITHOUT AUTHORIZATION
== END 2022-04-29 16:40 | disposition home or self-care (01) ==
LOC: ED 09:23
DX: R41.0 Disorientation, unspecified (principal); R11.2 Nausea with vomiting, unspecified; E03.9 Hypothyroidism, unspecified; K21.9 Gastro-esophageal reflux disease without esophagitis; Z91.048 Other nonmedicinal substance allergy status; Z88.0 Allergy status to penicillin; Z88.1 Allergy status to other antibiotic agents; Z79.899 Other long term (current) drug therapy; Z87.891 Personal history of nicotine dependence
CPT/HCPCS: 36415; 51701; 71045; 74176; 80053; 81001; 84484; 85025; 93005; 93010; 99285-25; G0480

== ENCOUNTER 2022-05-10 14:35 | Emergency (ER) | payer MEDICARE ==
[~2022-05-10] VITALS: Ht 165.1 cm; Wt 84.9 kg
--- OUTSIDE RECORDS SUMMARY | 2022-05-10 14:38 | XMS ---
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 - Patient with suicidal and/or homicidal ideations eloped. - Patient eloped with IV in place. Details: PATIENT LWBS Elopement at [facility] 02/07/2022 13:16 - Patient eloped before treatment completed. - Patient with suicidal and/or homicidal ideations eloped. - Patient eloped with IV in place. Details: PATIENT LW CRITERIA MET - [facility] - [facility] - 2 Visits in 30 Days CARE PROVIDERS DARION VITALE Physician 07/12/2021-Current PHONE: Unknown Jose has no Care Guidelines for this patient. E.D. VISIT COUNT (12 MO.) [address] TOTAL 5 NOTE: Visits indicate total known visits. ED/UCC VISIT TRACKING (12 MO.) 05/10/2022 14:36 [facility] [place] TYPE: Emergency COMPLAINT: - FALL 04/29/2022 09:24 [facility] [place] TYPE: Emergency COMPLAINT: - BACK PAIN DIAGNOSES: - Disorientation, unspecified - Other nonmedicinal substance allergy status - Gastro-esophageal reflux disease without esophagitis - Nausea with vomiting, unspecified - Allergy status to other antibiotic agents - Allergy status to penicillin - Altered mental status, unspecified - Personal history of nicotine dependence - Hypothyroidism, unspecified - Other terminal manager (current) drug therapy 04/26/2022 13:36 [facility] Mary DerrickCecelia [place] TYPE: Emergency DIAGNOSES: - Shortness of Breath - Wheezing - Disorientation, unspecified - Vomiting, unspecified - SOB; emesis - Emesis 02/07/2022 13:16 [facility] TYPE: Emergency COMPLAINT: - NOSE PAIN 07/09/2021 10:06 [facility] [place] TYPE: Emergency COMPLAINT: - CHEST PAIN DIAGNOSES: - Other nonmedicinal substance allergy status - Allergy status to other antibiotic agents - Personal history of nicotine dependence - Gastro-esophageal reflux disease without esophagitis - Disorientation, unspecified - Other terminal manager (current) drug therapy - Allergy status to penicillin - Unspecified asthma, uncomplicated - Hypothyroidism, unspecified INPATIENT VISIT TRACKING (12 MO.) No inpatient visits to display in this time frame [email or web address]
[2022-05-10] MEDS ORDERED: HYDROCODON-ACE1 EA10 PO (16:37)
[2022-05-10] MEDS ORDERED: LIDODERM1 EACH TOP (16:37)
== END 2022-05-10 16:55 | disposition home or self-care (01) ==
LOC: ED 14:35
DX: R07.89 Other chest pain (principal); J45.909 Unspecified asthma, uncomplicated; K21.9 Gastro-esophageal reflux disease without esophagitis; E03.9 Hypothyroidism, unspecified; Z87.891 Personal history of nicotine dependence; Z88.0 Allergy status to penicillin; Z91.048 Other nonmedicinal substance allergy status; Z88.1 Allergy status to other antibiotic agents; Z79.899 Other long term (current) drug therapy
CPT/HCPCS: 71046; 99283-25; A9270

== ENCOUNTER 2022-09-20 15:47 | Emergency (ER) | payer OTHER, MEDICARE ==
[~2022-09-20] VITALS: Ht 165.1 cm; Wt 80.3 kg
[~2022-09-20 15:47] MED LIST changes: +LIDODERM1 EACH TOP
--- OUTSIDE RECORDS SUMMARY | 2022-09-20 15:50 | XMS ---
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 - Patient with suicidal and/or homicidal ideations eloped. - Patient eloped with IV in place. Details: PATIENT LWBS Elopement at [facility] 02/07/2022 13:16 - Patient eloped before treatment completed. - Patient with suicidal and/or homicidal ideations eloped. - Patient eloped with IV in place. Details: PATIENT LWBS CRITERIA MET - [facility] CARE PROVIDERS DARION VITALE Physician 07/12/2021-Current PHONE: Unknown Jose has no Care Guidelines for this patient. E.D. VISIT COUNT (12 MO.) [address] [place] [address] TOTAL 5 NOTE: Visits indicate total known visits. ED/UCC VISIT TRACKING (12 MO.) 09/20/2022 15:[address] [facility] [place] TYPE: Emergency COMPLAINT: - FALL, L KNEE INJURY 05/10/2022 14:[address] [facility] [place] TYPE: Emergency COMPLAINT: - FALL DIAGNOSES: - Gastro-esophageal reflux disease without esophagitis - Allergy status to penicillin - Other termite technician (current) drug therapy - Unspecified asthma, uncomplicated - Other chest pain - Other nonmedicinal substance allergy status - Hypothyroidism, unspecified - Allergy status to other antibiotic agents - Personal history of nicotine dependence 04/29/2022 09:24 [facility] [place] TYPE: Emergency COMPLAINT: - BACK PAIN DIAGNOSES: - Allergy status to other antibiotic agents - Allergy status to penicillin - Altered mental status, unspecified - Personal history of nicotine dependence - Hypothyroidism, unspecified - Other termite technician (current) drug therapy - Disorientation, unspecified - Other nonmedicinal substance allergy status - Gastro-esophageal reflux disease without esophagitis - Nausea with vomiting, unspecified [facility]22 [facility] DIAGNOSES: - Vomiting, unspecified - SOB; emesis - Emesis - Shortness of Breath - Wheezing - Disorientation, unspecified 02/07/2022 13:16 [facility] TYPE: Emergency COMPLAINT: - NOSE PAIN INPATIENT VISIT TRACKING (12 MO.) No inpatient visits to display in this time frame [email or web address]
[2022-09-20] MEDS ORDERED: REXULTI1 MG PO (16:15)
== END 2022-09-20 17:50 | disposition home or self-care (01) ==
LOC: ED 15:47
DX: S80.02XA Contusion of left knee, initial encounter (principal); W01.0XXA Fall on same level from slipping, tripping and stumbling without subsequent striking against object, initial encounter; K21.9 Gastro-esophageal reflux disease without esophagitis; J45.909 Unspecified asthma, uncomplicated; G43.909 Migraine, unspecified, not intractable, without status migrainosus; E03.9 Hypothyroidism, unspecified; Z87.891 Personal history of nicotine dependence; Z88.0 Allergy status to penicillin; Z88.1 Allergy status to other antibiotic agents; Z91.048 Other nonmedicinal substance allergy status; Z79.899 Other long term (current) drug therapy
CPT/HCPCS: 73560; 99283-25

== ENCOUNTER 2023-01-11 10:55 | Emergency (ER) | payer MEDICARE ==
[~2023-01-11] VITALS: Ht 165.1 cm; Wt 80.3 kg
--- OUTSIDE RECORDS SUMMARY | ~2023-01-11 | XMS | Continuity of Care Document ---
Demographics + + + | Address | [address] | | | [place] [address] | + + + | Preferred Language | Unknown | + + + | Marital Status | | + + + | Jewish Affiliation | Unknown | + + + | Race | White | + + + | Ethnic Group | Not or | + + + Author + + + | Author | [facility] | + + + | Organization | [facility] | + + + | Address | [address] | | | [place] [address] | + + + | Phone | | + + + Care Team Providers + + + + | Care Rn Float Name | Role | Phone | + + + + Unavailable | Unavailable | + + + + Unavailable | Unavailable | + + + + Unavailable | Unavailable | + + + + Allergies and Intolerances + + + + + | date | description | facility | type | + + + + + | (no date) | Upset stomach | [facility] | | + + + + + | (no date) | Cephalexin | [facility] | | + + + + + | (no date) | cephalexin | [facility] | | + + + + + | (no date) | Mild | [facility] ([facility] | | + + + + + | (no date) | Rash | [facility] | | + + + + + | (no date) | Cephalexin | [facility] ([facility] | | + + + + + | (no date) | Penicillin | [facility] | | + + + + + | (no date) | Penicillin | [facility] | | + + + + + | (no date) | Blistered skin | [facility] ([facility] | | + + + + + | (no date) | Penicillins | [facility] | (unknown) | + + + + + | (no date) | cephalexin | [facility] | (unknown) | + + + + + | (no date) | adhesive tape | [facility] | (unknown) | + + + + + | (no date) | Penicillin | [facility] ([facility] | | + + + + + | (no date) | Cephalexin | [facility] ([facility] | | + + + + + | (no date) | Penicillin | [facility] ([facility] | | + + + + + Encounters No information. Functional Status No information. Immunizations No information. Medications + + + + | date | description | facility | + + + + | 2022-05-10 00:00 | Lidocaine | [facility] | + + + + | 2022-09-20 00:00 | BREXPIPRAZOLE | [facility] | + + + + | 2022-02-11 00:00 | MOMETASONE FUROATE | [facility] | + + + + | 2022-04-29 00:00 | MOMETASONE FUROATE | [facility] | + + + + | 2022-05-10 00:00 | MOMETASONE FUROATE | [facility] | + + + + | 2022-02-11 00:00 | CLONAZEPAM | [facility] | + + + + | 2022-04-29 00:00 | CLONAZEPAM | [facility] | + + + + | 2022-05-10 00:00 | CLONAZEPAM | [facility] | + + + + | 2022-09-20 00:00 | CLONAZEPAM | [facility] | + + + + | 2022-02-11 00:00 | OMEPRAZOLE | [facility] | + + + + | 2022-04-29 00:00 | OMEPRAZOLE | [facility] | + + + + | 2022-05-10 00:00 | OMEPRAZOLE | [facility] | + + + + | 2022-09-20 00:00 | OMEPRAZOLE | [facility] | + + + + | 2022-02-11 00:00 | RANITIDINE HCL | [facility] | + + + + | 2022-04-29 00:00 | RANITIDINE HCL | [facility] | + + + + | 2022-05-10 00:00 | RANITIDINE HCL | [facility] | + + + + | 2022-09-20 00:00 | RANITIDINE HCL | [facility] | + + + + | 2022-02-11 00:00 | CYANOCOBALAMIN (VITAMIN | [facility] | | | B-12) | | + + + + | 2022-04-29 00:00 | CYANOCOBALAMIN (VITAMIN | [facility] | | | B-12) | | + + + + | 2022-05-10 00:00 | CYANOCOBALAMIN (VITAMIN | [facility] | | | B-12) | | + + + + | 2022-09-20 00:00 | CYANOCOBALAMIN (VITAMIN | [facility] | | | B-12) | | + + + + | 2022-02-11 00:00 | OFLOXACIN | [facility] | + + + + | 2022-04-29 00:00 | OFLOXACIN | [facility] | + + + + | 2022-05-10 00:00 | OFLOXACIN | [facility] | + + + + | 2022-09-20 00:00 | OFLOXACIN | [facility] | + + + + | 2022-02-11 00:00 | SUMATRIPTAN SUCCINATE | [facility] | + + + + | 2022-04-29 00:00 | SUMATRIPTAN SUCCINATE | [facility] | + + + + | 2022-05-10 00:00 | SUMATRIPTAN SUCCINATE | [facility] | + + + + | 2022-09-20 00:00 | SUMATRIPTAN SUCCINATE | [facility] | + + + + | 2022-02-11 00:00 | CITALOPRAM HYDROBROMIDE | [facility] | + + + + | 2022-04-29 00:00 | CITALOPRAM HYDROBROMIDE | [facility] | + + + + | 2022-05-10 00:00 | CITALOPRAM HYDROBROMIDE | [facility] | + + + + | 2022-09-20 00:00 | CITALOPRAM HYDROBROMIDE | [facility] | + + + + | 2022-02-11 00:00 | CARISOPRODOL | [facility] | + + + + | 2022-04-29 00:00 | CARISOPRODOL | [facility] | + + + + | 2022-05-10 00:00 | CARISOPRODOL | [facility] | + + + + | 2022-09-20 00:00 | CARISOPRODOL | [facility] | + + + + | 2022-02-11 00:00 | BIOTIN | [facility] | + + + + | 2022-04-29 00:00 | BIOTIN | [facility] | + + + + | 2022-05-10 00:00 | BIOTIN | [facility] | + + + + | 2022-09-20 00:00 | BIOTIN | [facility] | + + + + | 2022-02-11 00:00 | CALCIUM CARBONATE | [facility] | + + + + | 2022-04-29 00:00 | CALCIUM CARBONATE | [facility] | + + + + | 2022-05-10 00:00 | CALCIUM CARBONATE | [facility] | + + + + | 2022-09-20 00:00 | CALCIUM CARBONATE | [facility] | + + + + | 2022-02-11 00:00 | GABAPENTIN | [facility] | + + + + | 2022-04-29 00:00 | GABAPENTIN | [facility] | + + + + | 2022-05-10 00:00 | GABAPENTIN | [facility] | + + + + | 2022-09-20 00:00 | GABAPENTIN | [facility] | + + + + | 2022-02-11 00:00 | GABAPENTIN | [facility] | + + + + | 2022-04-29 00:00 | GABAPENTIN | [facility] | + + + + | 2022-05-10 00:00 | GABAPENTIN | [facility] | + + + + | 2022-09-20 00:00 | GABAPENTIN | [facility] | + + + + | 2021-07-09 00:00 | ONDANSETRON | [facility] | + + + + | 2022-02-11 00:00 | VITAMIN A | [facility] | + + + + | 2022-04-29 00:00 | VITAMIN A | [facility] | + + + + | 2022-05-10 00:00 | VITAMIN A | [facility] | + + + + | 2022-09-20 00:00 | VITAMIN A | [facility] | + + + + | 2022-02-11 00:00 | LISINOPRIL | [facility] | + + + + | 2022-04-29 00:00 | LISINOPRIL | [facility] | + + + + | 2022-05-10 00:00 | LISINOPRIL | [facility] | + + + + | 2022-09-20 00:00 | LISINOPRIL | [facility] | + + + + | 2022-02-11 00:00 | DULOXETINE HCL | [facility] | + + + + | 2022-04-29 00:00 | DULOXETINE HCL | [facility] | + + + + | 2022-05-10 00:00 | DULOXETINE HCL | [facility] | + + + + | 2022-09-20 00:00 | DULOXETINE HCL | [facility] | + + + + | 2022-02-11 00:00 | ESOMEPRAZOLE MAG | [facility] | | | TRIHYDRATE | | + + + + | 2022-04-29 00:00 | ESOMEPRAZOLE MAG | [facility] | | | TRIHYDRATE | | + + + + | 2022-05-10 00:00 | ESOMEPRAZOLE MAG | [facility] | | | TRIHYDRATE | | + + + + | 2022-09-20 00:00 | ESOMEPRAZOLE MAG | [facility] | | | TRIHYDRATE | | + + + + | 2022-02-11 00:00 | ALBUTEROL SULFATE MDI | [facility] | | | (HFA) | | + + + + | 2022-04-29 00:00 | ALBUTEROL SULFATE MDI | [facility] | | | (HFA) | | + + + + | 2022-05-10 00:00 | ALBUTEROL SULFATE MDI | [facility] | | | (HFA) | | + + + + | 2022-09-20 00:00 | ALBUTEROL SULFATE MDI | [facility] | | | (HFA) | | + + + + | 2022-02-11 00:00 | CALCIUM CARBONATE/VITAMIN | [facility] | | | D3 | | + + + + | 2022-04-29 00:00 | CALCIUM CARBONATE/VITAMIN | [facility] | | | D3 | | + + + + | 2022-05-10 00:00 | CALCIUM CARBONATE/VITAMIN | [facility] | | | D3 | | + + + + | 2022-09-20 00:00 | CALCIUM CARBONATE/VITAMIN | [facility] | | | D3 | | + + + + | 2022-02-11 00:00 | HYDROCODONE | [facility] | | | BIT/ACETAMINOPHEN | | + + + + | 2022-04-29 00:00 | HYDROCODONE | [facility] | | | BIT/ACETAMINOPHEN | | + + + + | 2022-05-10 00:00 | HYDROCODONE | [facility] | | | BIT/ACETAMINOPHEN | | + + + + | 2022-09-20 00:00 | HYDROCODONE | [facility] | | | BIT/ACETAMINOPHEN | | + + + + | 2014-05-21 00:00 | HYDROCODONE | [facility] | | | BIT/ACETAMINOPHEN | | + + + + | 2017-02-18 00:00 | HYDROCODONE | [facility] | | | BIT/ACETAMINOPHEN | | + + + + | 2018-03-02 00:00 | HYDROCODONE | [facility] | | | BIT/ACETAMINOPHEN | | + + + + | 2019-12-24 00:00 | HYDROCODONE | [facility] | | | BIT/ACETAMINOPHEN | | + + + + | 2022-02-11 00:00 | CHOLECALCIFEROL (VITAMIN | [facility] | | | D3) | | + + + + | 2022-04-29 00:00 | CHOLECALCIFEROL (VITAMIN | [facility] | | | D3) | | + + + + | 2022-05-10 00:00 | CHOLECALCIFEROL (VITAMIN | [facility] | | | D3) | | + + + + | 2022-09-20 00:00 | CHOLECALCIFEROL (VITAMIN | [facility] | | | D3) | | + + + + | 2022-02-11 00:00 | BUSPIRONE HCL | [facility] | + + + + | 2022-04-29 00:00 | BUSPIRONE HCL | [facility] | + + + + | 2022-05-10 00:00 | BUSPIRONE HCL | [facility] | + + + + | 2022-09-20 00:00 | BUSPIRONE HCL | [facility] | + + + + | 2022-02-11 00:00 | BUSPIRONE HCL | [facility] | + + + + | 2022-04-29 00:00 | BUSPIRONE HCL | [facility] | + + + + | 2022-05-10 00:00 | BUSPIRONE HCL | [facility] | + + + + | 2022-09-20 00:00 | BUSPIRONE HCL | [facility] | + + + + | 2022-02-11 00:00 | LEVOTHYROXINE SODIUM | [facility] | + + + + | 2022-04-29 00:00 | LEVOTHYROXINE SODIUM | [facility] | + + + + | 2022-05-10 00:00 | LEVOTHYROXINE SODIUM | [facility] | + + + + | 2022-09-20 00:00 | LEVOTHYROXINE SODIUM | [facility] | + + + + | 2022-02-11 00:00 | LOSARTAN POTASSIUM | [facility] | + + + + | 2022-04-29 00:00 | LOSARTAN POTASSIUM | [facility] | + + + + | 2022-05-10 00:00 | LOSARTAN POTASSIUM | [facility] | + + + + | 2022-02-11 00:00 | BUPROPION HCL | [facility] | + + + + | 2022-04-29 00:00 | BUPROPION HCL | [facility] | + + + + | 2022-05-10 00:00 | BUPROPION HCL | [facility] | + + + + | 2022-09-20 00:00 | BUPROPION HCL | [facility] | + + + + Problems + + + + | date | description | facility | + + + + | 2014-05-21 00:00 | Contusion of back | [facility] | + + + + | 2017-02-18 00:00 | Contusion of left breast | [facility] | + + + + | 2017-02-18 00:00 | Sprain of right knee | [facility] | + + + + | 2018-03-02 00:00 | Contusion of forehead | [facility] | + + + + | 2018-03-02 00:00 | Multiple contusions | [facility] | + + + + | 2021-07-09 00:00 | Transient confusion | [facility] | + + + + | 2022-02-07 00:00 | Patient left without being | [facility] | | | seen | | + + + + | 2022-04-29 00:00 | Vomiting | [facility] | + + + + | 2022-04-29 00:00 | Confusion | [facility] | + + + + | 2022-09-20 00:00 | Contusion of left knee | [facility] | + + + + | 2022-12-06 08:57 | ENCNTR SCREEN MAMMOGRAM | [facility] | | | FOR MALIGNANT NEOPLASM OF | | | | BREAST | | + + + + | 2023-01-10 09:00 | ENCNTR SCREEN MAMMOGRAM | [facility] | | | FOR MALIGNANT NE | | + + + + Procedures No information. Results/Labs +--------+--------+ + +---------+--------+ + | test | date | author | facility | value | unit | | | | | | | | | interpreta | | | | | | | | tion | +--------+--------+ + +---------+--------+ + + + | Result panel 1 | + + + + + + +---------+ + + | (unknown) | (no date) | (unknown) | [facility] | (no | (units | (unknown) | | | | [facility] value) | unknown) | | | | [facility] | | | | + + + + +---------+ + + + + | Result panel 2 | + + + + + + +---------+ + + | (unknown) | (no date) | (unknown) | [facility] | (no | (units | (unknown) | | | | [facility] | value) | unknown) | | | | | [facility] | | | | + + + + +---------+ + + + + | Result panel 3 | + + + + + + +---------+ + + | (unknown) | (no date) | (unknown) | [facility] | (no | (units | (unknown) | | | | [facility] | value) | unknown) | | | | | [facility] | | | | + + + + +---------+ + + + + | Result panel 4 | + + + + + + +---------+ + + | (unknown) | (no date) | (unknown) | [facility] | (no | (units | (unknown) | | | | [facility] | value) | unknown) | | | | | [facility] | | | | + + + + +---------+ + + + + | Result panel 5 | + + + + + + +---------+ + + | (unknown) | (no date) | (unknown) | [facility] | (no | (units | (unknown) | | | | [facility] | value) | unknown) | | | | | [facility] | | | | + + + + +---------+ + + + + | Result panel 6 | + + + + + + +---------+ + + | (unknown) | (no date) | (unknown) | [facility] | (no | (units | (unknown) | | | | [facility] | value) | unknown) | | | | | [facility] | | | | + + + + +---------+ + + + + | Result panel 7 | + + + + + + +---------+ + + | (unknown) | (no date) | (unknown) | [facility] | (no | (units | (unknown) | | | | [facility] | value) | unknown) | | | | | [facility] | | | | + + + + +---------+ + + + + | Result panel 8 | + + + + + + +---------+ + + | (unknown) | (no date) | (unknown) | [facility] | (no | (units | (unknown) | | | | [facility] | value) | unknown) | | | | | [facility] | | | | + + + + +---------+ + + + + | Result panel 9 | + + + + + + +---------+ + + | (unknown) | (no date) | (unknown) | [facility] | (no | (units | (unknown) | | | | [facility] | value) | unknown) | | | | | [facility] | | | | + + + + +---------+ + + + + | Result panel 10 | + + + + + + +---------+ + + | (unknown) | (no date) | (unknown) | [facility] | (no | (units | (unknown) | | | | [facility] | value) | unknown) | | | | | [facility] | | | | + + + + +---------+ + + + + | Result panel 11 | + + + + + + +---------+ + + | (unknown) | (no date) | (unknown) | [facility] | (no | (units | (unknown) | | | | [facility] | value) | unknown) | | | | | [facility] | | | | + + + + +---------+ + + + + | Result panel 12 | + + + + + + +---------+ + + | (unknown) | (no date) | (unknown) | [facility] | (no | (units | (unknown) | | | | [facility] | value) | unknown) | | | | | [facility] | | | | + + + + +---------+ + + + + | Result panel 13 | + + + + + + +---------+ + + | (unknown) | (no date) | (unknown) | [facility] | (no | (units | (unknown) | | | | [facility] | value) | unknown) | | | | [facility] | | | | + + + + +---------+ + + + + | Result panel 14 | + + + + + + +---------+ + + | (unknown) | (no date) | (unknown) | [facility] | (no | (units | (unknown) | | | | [facility] | value) | unknown) | | | | | [facility] | | | | + + + + +---------+ + + + + | Result panel 15 | + + + + + + +---------+ + + | (unknown) | (no date) | (unknown) | [facility] | (no | (units | (unknown) | | | | [facility] | value) | unknown) | | | | | [facility] | | | | + + + + +---------+ + + + + | Result panel 16 | + + + + + + +---------+ + + | (unknown) | (no date) | (unknown) | [facility] | (no | (units | (unknown) | | | | [facility] | value) | unknown) | | | | | [facility] | | | | + + + + +---------+ + + + + | Result panel 17 | + + + + + + +---------+ + + | (unknown) | (no date) | (unknown) | [facility] | (no | (units | (unknown) | | | | [facility] | value) | unknown) | | | | | [facility] | | | | + + + + +---------+ + + + + | Result panel 18 | + + + + + + +---------+ + + | (unknown) | (no date) | (unknown) | [facility] | (no | (units | (unknown) | | | | [facility] | value) | unknown) | | | | | [facility] | | | | + + + + +---------+ + + + + | Result panel 19 | + + + + + + +---------+ + + | (unknown) | (no date) | (unknown) | [facility] | (no | (units | (unknown) | | | | [facility] | value) | unknown) | | | | | [facility] | | | | + + + + +---------+ + + + + | Result panel 20 | + + + + + + +---------+ + + | (unknown) | (no date) | (unknown) | [facility] | (no | (units | (unknown) | | | | [facility] | value) | unknown) | | | | | [facility] | | | | + + + + +---------+ + + + + | Result panel 21 | + + + + + + +---------+ + + | (unknown) | (no date) | (unknown) | [facility] | (no | (units | (unknown) | | | | [facility] | value) | unknown) | | | | | [facility] | | | | + + + + +---------+ + + + + | Result panel 22 | + + + + + + +---------+ + + | (unknown) | (no date) | (unknown) | [facility] | (no | (units | (unknown) | | | | [facility] | value) | unknown) | | | | [facility] | | | | + + + + +---------+ + + + + | Result panel 23 | + + + + + + +---------+ + + | (unknown) | (no date) | (unknown) | [facility] | (no | (units | (unknown) | | | | [facility] | value) | unknown) | | | | | [facility] | | | | + + + + +---------+ + + + + | Result panel 24 | + + + + + + +---------+ + + | (unknown) | (no date) | (unknown) | [facility] | (no | (units | (unknown) | | | | [facility] | value) | unknown) | | | | [facility] | | | | + + + + +---------+ + + + + | Result panel 25 | + + + + + + +---------+ + + | (unknown) | (no date) | (unknown) | [facility] | (no | (units | (unknown) | | | | [facility] | value) | unknown) | | | | | [facility] | | | | + + + + +---------+ + + + + | Result panel 26 | + + + + + + +---------+ + + | (unknown) | (no date) | (unknown) | [facility] | (no | (units | (unknown) | | | | [facility] | value) | unknown) | | | | [facility] | | | | + + + + +---------+ + + + + | Result panel 27 | + + + + + + +---------+ + + | (unknown) | (no date) | (unknown) | [facility] | (no | (units | (unknown) | | | | [facility] | value) | unknown) | | | | [facility] | | | | + + + + +---------+ + + + + | Result panel 28 | + + + + + + +---------+ + + | (unknown) | (no date) | (unknown) | [facility] | (no | (units | (unknown) | | | | [facility] | value) | unknown) | | | | [facility] | | | | + + + + +---------+ + + + + | Result panel 29 | + + + + + + +---------+ + + | (unknown) | (no date) | (unknown) | [facility] | (no | (units | (unknown) | | | | [facility] | value) | unknown) | | | | [facility] | | | | + + + + +---------+ + + + + | Result panel 30 | + + + + + + +---------+ + + | (unknown) | (no date) | (unknown) | [facility] | (no | (units | (unknown) | | | | [facility] value) | unknown) | | | | [facility] | | | | + + + + +---------+ + + + + | Result panel 31 | + + + + + + +---------+ + + | (unknown) | (no date) | (unknown) | [facility] | (no | (units | (unknown) | | | | [facility] | value) | unknown) | | | | [facility] | | | | + + + + +---------+ + + + + | Result panel 32 | + + + + + + +---------+ + + | (unknown) | (no date) | (unknown) | [facility] | (no | (units | (unknown) | | | | [facility] | value) | unknown) | | | | [facility] | | | | + + + + +---------+ + + + + | Result panel 33 | + + + + + + +---------+ + + | (unknown) | (no date) | (unknown) | [facility] | (no | (units | (unknown) | | | | [facility] value) | unknown) | | | | [facility] | | | | + + + + +---------+ + + + + | Result panel 34 | + + + + + + +---------+ + + | (unknown) | (no date) | (unknown) | [facility] | (no | (units | (unknown) | | | | [facility] value) | unknown) | | | | [facility] | | | | + + + + +---------+ + + + + | Result panel 35 | + + + + + + +---------+ + + | (unknown) | (no date) | (unknown) | [facility] | (no | (units | (unknown) | | | | [facility] value) | unknown) | | | | [facility] | | | | + + + + +---------+ + + + + | Result panel 36 | + + + + + + +---------+ + + | (unknown) | (no date) | (unknown) | [facility] | (no | (units | (unknown) | | | | [facility] value) | unknown) | | | | [facility] | | | | + + + + +---------+ + + + + | Result panel 37 | + + + + + + +---------+ + + | (unknown) | (no date) | (unknown) | [facility] | (no | (units | (unknown) | | | | [facility] value) | unknown) | | | | [facility] | | | | + + + + +---------+ + + + + | Result panel 38 | + + + + + + +---------+ + + | (unknown) | (no date) | (unknown) | [facility] | (no | (units | (unknown) | | | | [facility] | value) | unknown) | | | | [facility] | | | | + + + + +---------+ + + + + | Result panel 39 | + + + + + + +---------+ + + | (unknown) | (no date) | (unknown) | [facility] | (no | (units | (unknown) | | | | [facility] value) | unknown) | | | | [facility] | | | | + + + + +---------+ + + + + | Result panel 40 | + + + + + + +---------+ + + | (unknown) | (no date) | (unknown) | [facility] | (no | (units | (unknown) | | | | [facility] value) | unknown) | | | | [facility] | | | | + + + + +---------+ + + + + | Result panel 41 | + + + + + + +---------+ + + | (unknown) | (no date) | (unknown) | [facility] | (no | (units | (unknown) | | | | | [facility] | value) | unknown) | | | | | | [facility] | | | | + + + + +---------+ + + + + | Result panel 42 | + + + + + + +---------+ + + | (unknown) | (no date) | (unknown) | [facility] | (no | (units | (unknown) | | | | | [facility] | value) | unknown) | | | | | | [facility] | | | | + + + + +---------+ + + + + | Result panel 43 | + + + + + + +---------+ + + | (unknown) | (no date) | (unknown) | [facility] | (no | (units | (unknown) | | | | | [facility] | value) | unknown) | | | | | | [facility] | | | | + + + + +---------+ + + + + | Result panel 44 | + + + + + + +---------+ + + | (unknown) | (no date) | (unknown) | [facility] | (no | (units | (unknown) | | | | | [facility] | value) | unknown) | | | | | | [facility] | | | | + + + + +---------+ + + + + | Result panel 45 | + + + + + + +---------+ + + | (unknown) | (no date) | (unknown) | [facility] | (no | (units | (unknown) | | | | | [facility] | value) | unknown) | | | | | | [facility] | | | | + + + + +---------+ + + + + | Result panel 46 | + + + + + + +---------+ + + | (unknown) | (no date) | (unknown) | [facility] | (no | (units | (unknown) | | | | | [facility] | value) | unknown) | | | | | | [facility] | | | | + + + + +---------+ + + + + | Result panel 47 | + + + + + + +---------+ + + | (unknown) | (no date) | (unknown) | [facility] | (no | (units | (unknown) | | | | | [facility] | value) | unknown) | | | | | | [facility] | | | | + + + + +---------+ + + + + | Result panel 48 | + + + + + + +---------+ + + | (unknown) | (no date) | (unknown) | [facility] | (no | (units | (unknown) | | | | | [facility] | value) | unknown) | | | | | | [facility] | | | | + + + + +---------+ + + + + | Result panel 49 | + + + + + + +---------+ + + | (unknown) | (no date) | (unknown) | [facility] | (no | (units | (unknown) | | | | [facility] value) | unknown) | | [facility] | [facility] | | | | + + + + +---------+ + + + + | Result panel 50 | + + + + + + +---------+ + + | (unknown) | (no date) | (unknown) | [facility] | (no | (units | (unknown) | | | | [facility] value) | unknown) | | | | [facility] | | | | + + + + +---------+ + + + + | Result panel 51 | + + + + + + +---------+ + + | (unknown) | (no date) | (unknown) | [facility] | (no | (units | (unknown) | | | | [facility] value) | unknown) | | | [facility] | | | | + + + + +---------+ + + + + | Result panel 52 | + + + + + + +---------+ + + | (unknown) | (no date) | (unknown) | [facility] | (no | (units | (unknown) | | | | | [facility] | value) | unknown) | | | | [facility] | | | | + + + + +---------+ + + + + | Result panel 53 | + + + + + + +---------+ + + | (unknown) | (no date) | (unknown) | [facility] | (no | (units | (unknown) | | | | | [facility] | value) | unknown) | | | | [facility] | | | | + + + + +---------+ + + + + | Result panel 54 | + + + + + + +---------+ + + | (unknown) | (no date) | (unknown) | [facility] | (no | (units | (unknown) | | | | | [facility] | value) | unknown) | | | | [facility] | | | | + + + + +---------+ + + + + | Result panel 55 | + + + + + + +---------+ + + | (unknown) | (no date) | (unknown) | [facility] | (no | (units | (unknown) | | | | | [facility] | value) | unknown) | | | | [facility] | | | | + + + + +---------+ + + + + | Result panel 56 | + + + + + + +---------+ + + | (unknown) | (no date) | (unknown) | [facility] | (no | (units | (unknown) | | | | | [facility] | value) | unknown) | | | | [facility] | | | | + + + + +---------+ + + + + | Result panel 57 | + + + + + + +---------+ + + | (unknown) | (no date) | (unknown) | [facility] | (no | (units | (unknown) | | | | | [facility] | value) | unknown) | | | | [facility] | | | | + + + + +---------+ + + + + | Result panel 58 | + + + + + + +---------+ + + | (unknown) | (no date) | (unknown) | [facility] | (no | (units | (unknown) | | | | | [facility] value) | unknown) | | | | [facility] | | | | + + + + +---------+ + + + + | Result panel 59 | + + + + + + +---------+ + + | (unknown) | (no date) | (unknown) | [facility] | (no | (units | (unknown) | | | | | [facility] value) | unknown) | | | | [facility] | | | | + + + + +---------+ + + + + | Result panel 60 | + + + + + + +---------+ + + | (unknown) | (no date) | (unknown) | [facility] | (no | (units | (unknown) | | | | [facility] value) | unknown) | | | | [facility] | | | | + + + + +---------+ + + Social History No information. Vital Signs + + + +---------+ | date | measurement | value | units | + + + +---------+ | 2022-02-07 00:00 | BMI | 32.4 | kg/m2 | + + + +---------+ | 2022-02-07 00:00 | BP_diastolic | 71 | mmHg | + + + +---------+ | 2022-02-07 00:00 | BP_systolic | 159 | mmHg | + + + +---------+ | 2022-02-07 00:00 | heart_rate | 93 | /min | + + + +---------+ | 2022-02-07 00:00 | height_metric | 165.1 | cm | + + + +---------+ | 2022-02-07 00:00 | height_standard | 65 | in | + + + +---------+ | 2022-02-07 00:00 | o2_saturation | 96 | % | + + + +---------+ | 2022-02-07 00:00 | respiration_rate | 20 | /min | + + + +---------+ | 2022-02-07 00:00 | temperature_metric | 36.11 | C | | | | | | + + + +---------+ | 2022-02-07 00:00 | | 97 | F | | | temperature_standar | | | | | d | | | + + + +---------+ | 2022-02-07 00:00 | weight_metric | 88.45 | kg | + + + +---------+ | 2022-02-07 00:00 | weight_standard | 195 | lb | + + + +---------+ | 2022-04-29 00:00 | BMI | 32.4 | kg/m2 | + + + +---------+ | 2022-04-29 00:00 | BP_diastolic | 78 | mmHg | + + + +---------+ | 2022-04-29 00:00 | BP_systolic | 150 | mmHg | + + + +---------+ | 2022-04-29 00:00 | heart_rate | 82 | /min | + + + +---------+ | 2022-04-29 00:00 | height_metric | 165.1 | cm | + + + +---------+ | 2022-04-29 00:00 | height_standard | 65 | in | + + + +---------+ | 2022-04-29 00:00 | o2_saturation | 96 | % | + + + +---------+ | 2022-04-29 00:00 | respiration_rate | 18 | /min | + + + +---------+ | 2022-04-29 00:00 | temperature_metric | 36.78 | C | | | | | | + + + +---------+ | 2022-04-29 00:00 | | 98.2 | F | | | temperature_standar | | | | | d | | | + + + +---------+ | 2022-04-29 00:00 | weight_metric | 88.45 | kg | + + + +---------+ | 2022-04-29 00:00 | weight_standard | 195 | lb | + + + +---------+ | 2022-05-10 00:00 | BMI | 31.1 | kg/m2 | + + + +---------+ | 2022-05-10 00:00 | BP_diastolic | 77 | mmHg | + + + +---------+ | 2022-05-10 00:00 | BP_systolic | 140 | mmHg | + + + +---------+ | 2022-05-10 00:00 | heart_rate | 95 | /min | + + + +---------+ | 2022-05-10 00:00 | height_metric | 165.1 | cm | + + + +---------+ | 2022-05-10 00:00 | height_standard | 65 | in | + + + +---------+ | 2022-05-10 00:00 | o2_saturation | 96 | % | + + + +---------+ | 2022-05-10 00:00 | respiration_rate | 16 | /min | + + + +---------+ | 2022-05-10 00:00 | temperature_metric | 36.56 | C | | | | | | + + + +---------+ | 2022-05-10 00:00 | | 97.8 | F | | | temperature_standar | | | | | d | | | + + + +---------+ | 2022-05-10 00:00 | weight_metric | 84.9 | kg | + + + +---------+ | 2022-05-10 00:00 | weight_standard | 187.17 | lb | + + + +---------+ | 2022-05-10 00:00 | weight_standard | 187.18 | lb | + + + +---------+ | 2022-09-20 00:00 | BMI | 29.5 | kg/m2 | + + + +---------+ | 2022-09-20 00:00 | BP_diastolic | 62 | mmHg | + + + +---------+ | 2022-09-20 00:00 | BP_systolic | 141 | mmHg | + + + +---------+ | 2022-09-20 00:00 | heart_rate | 84 | /min | + + + +---------+ | 2022-09-20 00:00 | height_metric | 165.1 | cm | + + + +---------+ | 2022-09-20 00:00 | height_standard | 65 | in | + + + +---------+ | 2022-09-20 00:00 | o2_saturation | 96 | % | + + + +---------+ | 2022-09-20 00:00 | respiration_rate | 18 | /min | + + + +---------+ | 2022-09-20 00:00 | temperature_metric | 37.56 | C | | | | | | + + + +---------+ | 2022-09-20 00:00 | | 99.6 | F | | | temperature_standar | | | | | d | | | + + + +---------+ | 2022-09-20 00:00 | weight_metric | 80.34 | kg | + + + +---------+ | 2022-09-20 00:00 | weight_standard | 177.12 | lb | + + + +---------+ | 2022-09-20 00:00 | weight_standard | 177.13 | lb | + + + +---------+"
--- OUTSIDE RECORDS SUMMARY | ~2023-01-11 | XMS | Continuity of Care Document ---
Demographics + + + | Address | [address] | | | [place] [address] | + + + | Preferred Language | Unknown | + + + | Marital Status | | + + + | Roman Catholic Affiliation | Unknown | + + + | Race | White | + + + | Ethnic Group | Not or | + + + Author + + + | Author | [facility] | + + + | Organization | [facility] | + + + | Address | [address] | | | [place] [address] | + + + | Phone | | + + + Care Team Providers + + + + | Care Painter Helper Sign Name | Role | Phone | + [...] (no date) | Upset stomach | [facility] (unknown) [facility] | [facility] | | + + + + + | (no date) | Cephalexin | [facility] | (unknown) | | | [facility] | | + + + + + | (no date) | cephalexin | [facility] | (unknown) | | | [facility] | | + + + + + | (no date) | Mild | [facility] | (unknown) | | | [facility] | | + + + + + | (no date) | Rash | [facility] (unknown[facility] | | | [facility] | | + + + + + | (no date) | Cephalexin | [facility] | (unknown) | | | | [facility] | | + + + + + | (no date) | Penicillin | [facility] | (unknown) | | | [facility] | | + + + + + | (no date) | Penicillin | [facility] | (unknown) | | | [facility] | | + + + + + | (no date) | Blistered skin | [facility] | (unknown) | | | | Hospital [...] | (no date) | Penicillin | [facility] | (unknown) | | | | Hospital | | + + + + + | (no date) | Cephalexin | [facility] | (unknown) | | | | [facility] | | + + + + + | (no date) | Penicillin | [facility] | (unknown) | | | | Hospital | | + + + + + Encounters No information. Functional Status No information. Immunizations No information. Medications + + + + | date | description | facility | + + + + | 2022-05-10 00:00 | Lidocaine | [facility] | + + + + | 2022-09-20 00:00 | BREXPIPRAZOLE | [facility] | + + + + | 2022-02-11 00:00 | MOMETASONE FUROATE | [facility] | + + + + | 2022-04-29 00:00 | MOMETASONE FUROATE | [facility] | + + + + | 2022-05-10 00:00 | MOMETASONE FUROATE | [facility] | + + + + | 2022-02-11 00:00 | CLONAZEPAM | [facility] | + + + + | 2022-04-29 00:00 | CLONAZEPAM | [facility] | + + + + | 2022-05-10 00:00 | CLONAZEPAM | [facility] | + + + + | 2022-09-20 00:00 | CLONAZEPAM | [facility] | + + + + | 2022-02-11 00:00 | OMEPRAZOLE | [facility] | + + + + | 2022-04-29 00:00 | OMEPRAZOLE | [facility] | + + + + | 2022-05-10 00:00 | OMEPRAZOLE | [facility] | + + + + | 2022-09-20 00:00 | OMEPRAZOLE | [facility] | + + + + | 2022-02-11 00:00 | RANITIDINE HCL | [facility] | + + + + | 2022-04-29 00:00 | RANITIDINE HCL | [facility] | + + + + | 2022-05-10 00:00 | RANITIDINE HCL | [facility] | + + + + | 2022-09-20 00:00 | RANITIDINE HCL | [facility] | + + + + | 2022-02-11 00:00 | CYANOCOBALAMIN (VITAMIN | [facility] | | | B-12) | | + + + + | 2022-04-29 00:00 | CYANOCOBALAMIN (VITAMIN | [facility] | | | B-12) | | + + + + | 2022-05-10 00:00 | CYANOCOBALAMIN (VITAMIN | [facility] | | | B-12) | | + + + + | 2022-09-20 00:00 | CYANOCOBALAMIN (VITAMIN | [facility] | | | B-12) | | + + + + | 2022-02-11 00:00 | OFLOXACIN | [facility] | + + + + | 2022-04-29 00:00 | OFLOXACIN | [facility] | + + + + | 2022-05-10 00:00 | OFLOXACIN | [facility] | + + + + | 2022-09-20 00:00 | OFLOXACIN | [facility] | + + + + | 2022-02-11 00:00 | SUMATRIPTAN SUCCINATE | [facility] | + + + + | 2022-04-29 00:00 | SUMATRIPTAN SUCCINATE | [facility] | + + + + | 2022-05-10 00:00 | SUMATRIPTAN SUCCINATE | [facility] | + + + + | 2022-09-20 00:00 | SUMATRIPTAN SUCCINATE | [facility] | + + + + | 2022-02-11 00:00 | CITALOPRAM HYDROBROMIDE | [facility] | + + + + | 2022-04-29 00:00 | CITALOPRAM HYDROBROMIDE | [facility] | + + + + | 2022-05-10 00:00 | CITALOPRAM HYDROBROMIDE | [facility] | + + + + | 2022-09-20 00:00 | CITALOPRAM HYDROBROMIDE | [facility] | + + + + | 2022-02-11 00:00 | CARISOPRODOL | [facility] | + + + + | 2022-04-29 00:00 | CARISOPRODOL | [facility] | + + + + | 2022-05-10 00:00 | CARISOPRODOL | [facility] | + + + + | 2022-09-20 00:00 | CARISOPRODOL | [facility] | + + + + | 2022-02-11 00:00 | BIOTIN | [facility] | + + + + | 2022-04-29 00:00 | BIOTIN | [facility] | + + + + | 2022-05-10 00:00 | BIOTIN | [facility] | + + + + | 2022-09-20 00:00 | BIOTIN | [facility] | + + + + | 2022-02-11 00:00 | CALCIUM CARBONATE | [facility] | + + + + | 2022-04-29 00:00 | CALCIUM CARBONATE | [facility] | + + + + | 2022-05-10 00:00 | CALCIUM CARBONATE | [facility] | + + + + | 2022-09-20 00:00 | CALCIUM CARBONATE | [facility] | + + + + | 2022-02-11 00:00 | GABAPENTIN | [facility] | + + + + | 2022-04-29 00:00 | GABAPENTIN | [facility] | + + + + | 2022-05-10 00:00 | GABAPENTIN | [facility] | + + + + | 2022-09-20 00:00 | GABAPENTIN | [facility] | + + + + | 2022-02-11 00:00 | GABAPENTIN | [facility] | + + + + | 2022-04-29 00:00 | GABAPENTIN | [facility] | + + + + | 2022-05-10 00:00 | GABAPENTIN | [facility] | + + + + | 2022-09-20 00:00 | GABAPENTIN | [facility] | + + + + | 2021-07-09 00:00 | ONDANSETRON | [facility] | + + + + | 2022-02-11 00:00 | VITAMIN A | [facility] | + + + + | 2022-04-29 00:00 | VITAMIN A | [facility] | + + + + | 2022-05-10 00:00 | VITAMIN A | [facility] | + + + + | 2022-09-20 00:00 | VITAMIN A | [facility] | + + + + | 2022-02-11 00:00 | LISINOPRIL | [facility] | + + + + | 2022-04-29 00:00 | LISINOPRIL | [facility] | + + + + | 2022-05-10 00:00 | LISINOPRIL | [facility] | + + + + | 2022-09-20 00:00 | LISINOPRIL | [facility] | + + + + | 2022-02-11 00:00 | DULOXETINE HCL | [facility] | + + + + | 2022-04-29 00:00 | DULOXETINE HCL | [facility] | + + + + | 2022-05-10 00:00 | DULOXETINE HCL | [facility] | + + + + | 2022-09-20 00:00 | DULOXETINE HCL | [facility] | + + + + | 2022-02-11 00:00 | ESOMEPRAZOLE MAG | [facility] | | | TRIHYDRATE | | + + + + | 2022-04-29 00:00 | ESOMEPRAZOLE MAG | [facility] | | | TRIHYDRATE | | + + + + | 2022-05-10 00:00 | ESOMEPRAZOLE MAG | [facility] | | | TRIHYDRATE | | + + + + | 2022-09-20 00:00 | ESOMEPRAZOLE MAG | [facility] | | | TRIHYDRATE | | + + + + | 2022-02-11 00:00 | ALBUTEROL SULFATE MDI | [facility] | | | (HFA) | | + + + + | 2022-04-29 00:00 | ALBUTEROL SULFATE MDI | [facility] | | | (HFA) | | + + + + | 2022-05-10 00:00 | ALBUTEROL SULFATE MDI | [facility] | | | (HFA) | | + + + + | 2022-09-20 00:00 | ALBUTEROL SULFATE MDI | [facility] | | | (HFA) | | + + + + | 2022-02-11 00:00 | CALCIUM CARBONATE/VITAMIN | [facility] | | | D3 | | + + + + | 2022-04-29 00:00 | CALCIUM CARBONATE/VITAMIN | [facility] | | | D3 | | + + + + | 2022-05-10 00:00 | CALCIUM CARBONATE/VITAMIN | [facility] | | | D3 | | + + + + | 2022-09-20 00:00 | CALCIUM CARBONATE/VITAMIN | [facility] | | | D3 | | + + + + | 2022-02-11 00:00 | HYDROCODONE | [facility] | | | BIT/ACETAMINOPHEN | | + + + + | 2022-04-29 00:00 | HYDROCODONE | [facility] | | | BIT/ACETAMINOPHEN | | + + + + | 2022-05-10 00:00 | HYDROCODONE | [facility] | | | BIT/ACETAMINOPHEN | | + + + + | 2022-09-20 00:00 | HYDROCODONE | [facility] | | | BIT/ACETAMINOPHEN | | + + + + | 2014-05-21 00:00 | HYDROCODONE | [facility] | | | BIT/ACETAMINOPHEN | | + + + + | 2017-02-18 00:00 | HYDROCODONE | [facility] | | | BIT/ACETAMINOPHEN | | + + + + | 2018-03-02 00:00 | HYDROCODONE | [facility] | | | BIT/ACETAMINOPHEN | | + + + + | 2019-12-24 00:00 | HYDROCODONE | [facility] | | | BIT/ACETAMINOPHEN | | + + + + | 2022-02-11 00:00 | CHOLECALCIFEROL (VITAMIN | [facility] | | | D3) | | + + + + | 2022-04-29 00:00 | CHOLECALCIFEROL (VITAMIN | [facility] | | | D3) | | + + + + | 2022-05-10 00:00 | CHOLECALCIFEROL (VITAMIN | [facility] | | | D3) | | + + + + | 2022-09-20 00:00 | CHOLECALCIFEROL (VITAMIN | [facility] | | | D3) | | + + + + | 2022-02-11 00:00 | BUSPIRONE HCL | [facility] | + + + + | 2022-04-29 00:00 | BUSPIRONE HCL | [facility] | + + + + | 2022-05-10 00:00 | BUSPIRONE HCL | [facility] | + + + + | 2022-09-20 00:00 | BUSPIRONE HCL | [facility] | + + + + | 2022-02-11 00:00 | BUSPIRONE HCL | [facility] | + + + + | 2022-04-29 00:00 | BUSPIRONE HCL | [facility] | + + + + | 2022-05-10 00:00 | BUSPIRONE HCL | [facility] | + + + + | 2022-09-20 00:00 | BUSPIRONE HCL | [facility] | + + + + | 2022-02-11 00:00 | LEVOTHYROXINE SODIUM | [facility] | + + + + | 2022-04-29 00:00 | LEVOTHYROXINE SODIUM | [facility] | + + + + | 2022-05-10 00:00 | LEVOTHYROXINE SODIUM | [facility] | + + + + | 2022-09-20 00:00 | LEVOTHYROXINE SODIUM | [facility] | + + + + | 2022-02-11 00:00 | LOSARTAN POTASSIUM | [facility] | + + + + | 2022-04-29 00:00 | LOSARTAN POTASSIUM | [facility] | + + + + | 2022-05-10 00:00 | LOSARTAN POTASSIUM | [facility] | + + + + | 2022-02-11 00:00 | BUPROPION HCL | [facility] | + + + + | 2022-04-29 00:00 | BUPROPION HCL | [facility] | + + + + | 2022-05-10 00:00 | BUPROPION HCL | [facility] | + + + + | 2022-09-20 00:00 | BUPROPION HCL | [facility] | + + + + Problems + + + + | date | description | facility | + + + + | 2014-05-21 00:00 | Contusion of back | [facility] | + + + + | 2017-02-18 00:00 | Contusion of left breast | [facility] | + + + + | 2017-02-18 00:00 | Sprain of right knee | [facility] | + + + + | 2018-03-02 00:00 | Contusion of forehead | [facility] | + + + + | 2018-03-02 00:00 | Multiple contusions | [facility] | + + + + | 2021-07-09 00:00 | Transient confusion | [facility] | + + + + | 2022-02-07 00:00 | Patient left without being | [facility] | | | seen | | + + + + | 2022-04-29 00:00 | Vomiting | [facility] | + + + + | 2022-04-29 00:00 | Confusion | [facility] | + + + + | 2022-09-20 00:00 | Contusion of left knee | [facility] | + + + + | 2022-12-06 [...]
[~2023-01-11 10:55] MED LIST changes: +REXULTI1 MG PO
--- OUTSIDE RECORDS SUMMARY | 2023-01-11 10:57 | XMS ---
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 02/07/2022 13:16 - Patient eloped before treatment completed. - Patient with suicidal and/or homicidal ideations eloped. - Patient eloped with IV in place. Details: PATIENT LWBS Elopement at [facility] 02/07/2022 13:16 - Patient eloped before treatment completed. - Patient with suicidal and/or homicidal ideations eloped. - Patient eloped with IV in place. Details: PATIENT LWBS CRITERIA MET - [facility] CARE PROVIDERS DARION VITALE Physician 07/12/2021-Current PHONE: Unknown Jose has no Care Guidelines for this patient. E.D. VISIT COUNT (12 MO.) [address] [place] [address] TOTAL 6 NOTE: Visits indicate total known visits. ED/UCC VISIT TRACKING (12 MO.) 01/11/2023 10:[address] [facility] [place] TYPE: Emergency COMPLAINT: - STROKE SYMPTOMS 09/20/2022 15:[address] [facility] [place] TYPE: Emergency COMPLAINT: - FALL, L KNEE INJURY DIAGNOSES: - Allergy status to other antibiotic agents - Allergy status to penicillin - Contusion of left knee, initial encounter - Fall on same level from slipping, tripping and stumbling without subsequent striking against object, initial encounter - Gastro-esophageal reflux disease without esophagitis - Hypothyroidism, unspecified - Migraine, unspecified, not intractable, without status migrainosus - Other care home (current) drug therapy - Other nonmedicinal substance allergy status - Pain in left knee - Pain in right knee - Personal history of nicotine dependence - Unspecified asthma, uncomplicated 05/10/2022 14:36 [facility] TYPE: Emergency COMPLAINT: - FALL DIAGNOSES: - Allergy status to other antibiotic agents - Allergy status to penicillin - Gastro-esophageal reflux disease without esophagitis - Hypothyroidism, unspecified - Other chest pain - Other care home (current) drug therapy - Other nonmedicinal substance allergy status - Personal history of nicotine dependence - Unspecified asthma, uncomplicated 04/29/2022 09:24 [facility] TYPE: Emergency COMPLAINT: - BACK PAIN DIAGNOSES: - Allergy status to other antibiotic agents - Allergy status to penicillin - Altered mental status, unspecified - Disorientation, unspecified - Gastro-esophageal reflux disease without esophagitis - Hypothyroidism, unspecified - Nausea with vomiting, unspecified - Other technician terminal and repeater (current) drug therapy - Other nonmedicinal substance allergy status - Personal history of nicotine dependence 04/26/2022 13:36 [facility] Joan [place] TYPE: Emergency DIAGNOSES: - Disorientation, unspecified - Vomiting, unspecified - Wheezing - Emesis - Shortness of Breath - SOB; emesis 02/07/2022 13:16 [facility] [place] TYPE: Emergency COMPLAINT: - NOSE PAIN INPATIENT VISIT TRACKING (12 MO.) No inpatient visits to display in this time frame [email or web address]
[2023-01-11] MEDS ORDERED: BACLOFEN10 MG PO (11:02)
[2023-01-11] MEDS ORDERED: ROPINIROLE HC0.25 MG PO (11:02)
[2023-01-11] MEDS ORDERED: ZOLPIDEM TARTRAT5 MG PO (11:03)
[2023-01-11] MEDS ORDERED: CLONAZEPAM0.5 MG PO (16:29)
[2023-01-11 17:38] VITALS: BP 159/91
== END 2023-01-11 17:38 | disposition home or self-care (01) ==
LOC: ED 10:55
DX: R41.0 Disorientation, unspecified (principal); T50.915A Adverse effect of multiple unspecified drugs, medicaments and biological substances, initial encounter; F13.239 Sedative, hypnotic or anxiolytic dependence with withdrawal, unspecified; J45.909 Unspecified asthma, uncomplicated; E03.9 Hypothyroidism, unspecified; K21.9 Gastro-esophageal reflux disease without esophagitis; Z88.0 Allergy status to penicillin; Z88.1 Allergy status to other antibiotic agents; Z91.048 Other nonmedicinal substance allergy status; Z79.899 Other long term (current) drug therapy
CPT/HCPCS: 36415; 51701; 70450; 80053; 81001; 85025; 99285 25; A9270; J1885; J2060; J2405; J2765; J7030